=== PATIENT | male | born 1945 | race Caucasian/White ===

== ENCOUNTER 2017-08-02 09:55 | Emergency (ER) | payer MEDICARE, OTHER ==
[~2017-08-02 09:55] MED LIST: ACE325 PO; ATOR10TA24 PO; ATOR40TA24 PO; ATOR40TA69 PO; DIOVAN TP; DIP25 PO; DIPH-740 PO; ESOM20CA31 PO; EZET1TAB63 PO; FAMO20VI; HYDR-3072 PO; HYDR-4225 PO; HYDRO25 PO; LEVO750T27 PO; LORA-1456 PO; MAX75 PO; METF-410 PO; MON4; PANT40TA65 PO; PRE10 PO; PRE20 PO; PRE5; PRED-1 PO; PRED1TAB17 PO; PRED20TA6 PO; STATIN; VALS1TAB10 PO; VALS1TAB79 PO; VALS40TA6 PO; [UNRECOGNIZED DRUG - CODE]; [UNRECOGNIZED DRUG - REMARK] PO
--- NOTE | 2017-08-02 10:09 | ER Report ---
History and Physical Time Seen By MD: 10:08 Hx. of Stated Complaint: RECENT LOSS OF ; DAUGHTER STATES THAT HE HAS HAD SOME ANXIETY AND IS ON NEW MEDICATION HPI/ROS CHIEF COMPLAINT: Anxiety HISTORY OF PRESENT ILLNESS: Patient is a 71-year-old male who presents to the emergency department for evaluation of "low oxygen saturation". Patient has a past medical history for hypertension, situational anxiety, hypercholesterol and type II diabetes. The symptoms that brought the patient to the emergency department today is that he was coming out of the bathroom he felt flushing to his face along with tingling to the face specifically around the lips and some tingling to the left fingers. The symptoms lasted under 1 minute and resolved spontaneously. Patient had no loss of consciousness. Patient denies any significant chest pain or pressure. Denies abdominal pain nausea vomiting or diarrhea. Patient admits that he recently lost his and this is causing some undue anxiety and stress. Patient was recently switched to Paxil which she started approximately one week ago. He had been taking Ativan but his primary care provider is trying to switch him off of that. Patient has no suicidal ideation or thoughts of suicide but doesn't do to depression and anxiety. REVIEW OF SYSTEMS: Constitutional: No fever, no chills. Eyes: No discharge. ENT: No sore throat. Cardiovascular: No chest pain, no palpitations. Respiratory: No cough, no shortness of breath. Gastrointestinal: No abdominal pain, no vomiting. Genitourinary: No hematuria. Musculoskeletal: No back pain. Skin: No rashes. Neurological: No headache. Psychiatric: Depression, anxietyand suicidal ideation. Allergies: Coded Allergies: aspirin (Verified Allergy, Severe, ANAPHYLAXIS, 03/23/16) penicillin (Unverified Allergy, Unknown, ANAPHYLAXIS, 03/23/16) Uncoded Allergies: UNKNOWN FOODS (Allergy, Unknown, 10/16/14) Home Meds Active Scripts Hydroxyzine Hcl (HYDROXYZINE HCL) 25 Mg Tablet, 1-2 TAB PO Q6H Y for hives and itching, #60 2 Refills Prov:JERICA CARDOZA DO 03/23/16 Lorazepam (ATIVAN) 1 Mg Tablet, 1 MG PO Q4-6H for Anxiety, #10 TAB Prov:RUDOLPH HANSEN MD 12/31/15 Reported Medications [place]-3S/Dha/Epa/Fish Oil (Fish Oil 1,200 mg Softgel) 720-1,200MG Capsule.dr 08/02/17 Famotidine (PEPCID AC) 10 Mg Tablet, 20 MG PO QDAY, #5 TAB 08/02/17 Montelukast Sodium (SINGULAIR) 10 Mg Tablet, 1 TAB PO QDAY, TAB 08/02/17 Fluoxetine Hcl (FLUOXETINE HCL) 20 Mg Capsule, 20 MG PO QDAY, CAPSULE 08/02/17 Metformin Hcl (METFORMIN HCL) 1,000 Mg Tablet, 1 TAB PO BID, TAB 08/02/17 Gabapentin (GABAPENTIN) 300 Mg Capsule, 600 MG PO TID, CAPSULE 08/02/17 Triamterene/Hctz (TRIAMTERENE-HCTZ 75-50 MG TAB) 1 Each Tab, 1 EACH PO DAILY, TAB 07/06/15 Atorvastatin Calcium (ATORVASTATIN CALCIUM) 40 Mg Tablet, 1 TAB PO QDAY, TAB 01/10/15 Pantoprazole Sodium (PANTOPRAZOLE SODIUM) 40 Mg Tablet.dr, 40 MG PO QDAY, TAB.SR 05/21/13 Diphenhydramine Hcl (Benadryl) 25 Mg Cap, 25 MG PO QAM 11/29/11 Discontinued Reported Medications Metformin Hcl (METFORMIN HCL) 500 Mg Tablet, 2 TAB PO BID TAKE ONE TABLET BY MOUTH ONCE A DAY WITH FOOD 05/21/13 Discontinued Scripts Prednisone (PREDNISONE) 20 Mg Tablet, 20 MG PO QDAY for allergic reaction, #60 3 tablets by mouth daily 3 days then 2 by mouth daily 3 days, then one by mouth daily 3 days, repeat as needed Prov:JERICA CARDOZA DO 03/23/16 Prednisone 10 Mg Tab (PREDNISONE 10 MG TAB) 10 Mg Tablet, 10 MG PO QDAY Y for reduce allergic reaction, #12 2 tabs daily for 4 days 1 tab daily for 4 days Prov:JERICA CARDOZA DO 03/21/16 Past Medical/Surgical History Past medical history for hypertension, history of gastroesophageal reflux disease history of type II diabetes Hx Smoking: Yes (3/DAY "ALL HIS LIFE") Smoking Status: Current: Every Day Smoker Exposure to Second Hand Smoke?: No Hx Substance Use Disorder: No Hx Alcohol Use: Yes (1-2 BEER OR WINE PER DAY) Constitutional Vital Sign - Last 24 Hours 08/02/17 10:00 Temp 98.7 Pulse 68 Resp 19 B/P (MAP) 132/77 Pulse Ox 93 O2 Delivery Room Air Physical Exam General/Constitutional: Patient is awake, alert, nontoxic and in no acute respiratory distress. Elevated BMI Head: Normocephalic and atraumatic. Eyes: Conjunctival clear, Pupils are equal and reactive to light. Extraocular muscles are intact and symmetrical. Sclera are clear and anicteric. Nares: No rhinorrhea or bleeding. Turbinates are pink and moist. Oropharyngeal: Mucous membranes are moist. There is no pharyngeal erythema or exudate Neck: Supple, no adenopathy. Cardiovascular: Heart is regular rate and rhythm without audible murmurs, rubs or gallops. Pulmonary: Lungs are clear to auscultation bilaterally. There are no wheezes, rales, or rhonchi. Chest rise is symmetrical Abdomen: Soft, nontender, no guarding or peritoneal signs. 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 Medical Decision Making EKG/Imaging EKG Interpretation EKG shows sinus bradycardia with ventricular rate of 59 bpm. There is poor baseline but no appreciable ST segment or T-wave abnormalities noted. Monitor Interpretation: Normal Sinus Rhythm ED Course/Re-evaluation ED Course 08/02/2017 10:58:07 am Patient suspect with hyperventilation causing symptoms of numbness to the face and tingling, this resolved spontaneously Re-evaluation 08/02/2017 11:30:51 am patient seen by crisis provided resources as an outpatient dealing with anxiety and depression. Decision to Disposition Date: Aug 02, 2017 Decision to Disposition Time: 11:31 Depart Departure Latest Vital Signs Vital Signs Date Time Temp Pulse Resp B/P (MAP) Pulse Ox O2 Delivery O2 Flow Rate FiO2 08/02/17 10:00 98.7 68 19 132/77 93 Room Air Impression: Primary Impression: Situational anxiety Condition: Improved Disposition: HOME OR SELF-CARE New Scripts Lorazepam (ATIVAN) 0.5 Mg Tablet 0.5 MG PO Q8H for Anxiety, #20 TAB 0 Refills Prov: DON PORTER MD 08/02/17 Patient Instructions: Anxiety (ED) DON PORTER MD Aug 02, 2017 10:09
[2017-08-02] MEDS ORDERED: FLUO-177 PO (10:11)
[2017-08-02] MEDS ORDERED: OMEG-177 (10:11)
[2017-08-02] MEDS ORDERED: METF-420 PO (10:11)
[2017-08-02] MEDS ORDERED: FAMO-129 PO (10:11)
[2017-08-02] MEDS ORDERED: GABA-549 PO (10:11)
[2017-08-02] MEDS ORDERED: MONT10TA PO (10:11)
[2017-08-02 11:00] VITALS: BP 98/62
--- NOTE | 2017-08-02 11:04 | EKG ---
FACILITY: [facility] PATIENT NAME: VICTORIA TINOCO : [id number] MR: [id number] V: [id number] EXAM DATE: ORDERING PHYSICIAN: DON PORTER TECHNOLOGIST: JANINA Calloway Reason : DIZZINESS Blood Pressure : / mmHG Vent. Rate : 059 BPM Atrial Rate : 059 BPM P-R Int : 174 ms QRS Dur : 094 ms QT Int : 428 ms P-R-T Axes : 058 063 067 degrees QTc Int : 423 ms Sinus bradycardia Otherwise normal ECG When compared with ECG of 16-OCT-2014 15:19, Vent. rate has decreased BY 32 BPM QT has shortened Confirmed by EDWIN SAMUEL ([id number]) on 08/02/2017 11:09:07 AM Referred By: CHARLOTTE Confirmed By:EDWIN SAMUEL
[2017-08-02] MEDS ORDERED: LORA-1455 PO (11:32)
[2017-08-06] MEDS ORDERED: DIPH-618 PO (10:35)
== END 2017-08-02 11:43 | disposition home or self-care (01) ==
LOC: ER 09:55
DX: F41.1 Generalized anxiety disorder (principal)
CPT/HCPCS: 93005; 99282

== ENCOUNTER 2017-08-18 20:15 | Emergency (ER) | payer MEDICARE, OTHER ==
[~2017-08-18 20:15] MED LIST changes: +DIPH-618 PO; +FAMO-129 PO; +FLUO-177 PO; +GABA-549 PO; +LORA-1455 PO; +METF-420 PO; +MONT10TA PO; +OMEG-177
--- NOTE | 2017-08-18 20:26 | ER Report ---
History and Physical Time Seen By MD: 20:17 HPI/ROS CHIEF COMPLAINT: trouble swallowing HISTORY OF PRESENT ILLNESS: This is a 72 year old male. He is having trouble swallowing for several months now. He feels like there is something in lower throat and upper chest making this difficult. It makes him panic a little. He suffers from anxiety already and this seems to make it worse. He saw a doctor at the [facility] who did a nasopharyngeal scope and did not see anything in the upper airway and recommended upper endoscopy. He has an order from his doctor for a chest x-ray, but feels like this is worsening. He has no trouble with swallowing liquids. He does have some trouble with foods. No shortness of breath. He does cough and uses tobacco. No chest pain. No abdominal pain. Normal bowels. No real pain associated with the trouble swallowing. Allergies: Coded Allergies: aspirin (Verified Allergy, Severe, ANAPHYLAXIS, 08/18/17) penicillin (Unverified Allergy, Unknown, ANAPHYLAXIS, 08/18/17) Uncoded Allergies: UNKNOWN FOODS (Allergy, Unknown, 10/16/14) Home Meds Active Scripts Lorazepam (ATIVAN) 0.5 Mg Tablet, 0.5 MG PO Q8H for Anxiety, #20 TAB 0 Refills Prov:DON PORTER MD 08/02/17 Hydroxyzine Hcl (HYDROXYZINE HCL) 25 Mg Tablet, 1-2 TAB PO Q6H Y for hives and itching, #60 2 Refills Prov:JERICA CARDOZA DO 03/23/16 Reported Medications Cetirizine Hcl (ZYRTEC) 10 Mg Capsule, 10 MG PO QDAY, CAPSULE 08/18/17 Fluoxetine Hcl (FLUOXETINE HCL) 20 Mg Capsule, 40 MG PO QDAY, CAPSULE 08/18/17 [place]-3S/Dha/Epa/Fish Oil (Fish Oil 1,200 mg Softgel) 720-1,200MG Capsule. 08/02/17 Famotidine (PEPCID AC) 10 Mg Tablet, 20 MG PO QDAY, #5 TAB 08/02/17 Montelukast Sodium (SINGULAIR) 10 Mg Tablet, 1 TAB PO QDAY, TAB 08/02/17 Metformin Hcl (METFORMIN HCL) 1,000 Mg Tablet, 1 TAB PO BID, TAB 08/02/17 Gabapentin (GABAPENTIN) 300 Mg Capsule, 600 MG PO QHS, CAPSULE 08/02/17 Triamterene/Hctz (TRIAMTERENE-HCTZ 75-50 MG TAB) 1 Each Tab, 1 TAB PO DAILY for 30 Days, TAB 07/06/15 Atorvastatin Calcium (ATORVASTATIN CALCIUM) 40 Mg Tablet, 1 TAB PO QDAY, TAB 01/10/15 Pantoprazole Sodium (PANTOPRAZOLE SODIUM) 40 Mg Tablet.dr, 1 TAB PO QDAY for 30 Days, TAB.SR 05/21/13 Discontinued Reported Medications Diphenhydramine Hcl (DIPHENHYDRAMINE HCL) 25 Mg Tablet, PO DIRECTED, TAB 08/06/17 Fluoxetine Hcl (FLUOXETINE HCL) 20 Mg Capsule, 20 MG PO QDAY, CAPSULE 08/02/17 Reviewed Nurses Notes: Yes Hx Smoking: Yes (3/DAY "ALL HIS LIFE") Smoking Status: Current: Every Day Smoker Exposure to Second Hand Smoke?: No Hx Substance Use Disorder: No Hx Alcohol Use: Yes (1-2 BEER OR WINE PER DAY) Constitutional Vital Sign - Last 24 Hours 08/18/17 08/18/17 08/18/17 08/18/17 20:22 20:22 20:30 20:45 Temp 98.2 Pulse 76 69 72 Resp 16 B/P (MAP) 156/81 (106) 156/81 134/76 (95) Pulse Ox 90 90 O2 Delivery Room Air 08/18/17 08/18/17 08/18/17 08/18/17 21:00 21:15 21:30 21:45 Pulse 63 68 62 61 B/P (MAP) 134/66 (88) 138/66 (90) Pulse Ox 90 88 89 87 08/18/17 08/18/17 08/18/17 08/18/17 22:00 23:00 23:15 23:30 Pulse 70 71 62 B/P (MAP) 125/79 (94) 127/77 (94) Pulse Ox 91 95 87 90 08/18/17 08/19/17 08/19/17 23:45 00:00 00:14 Pulse 56 66 82 Resp 16 B/P (MAP) 146/76 (99) 149/88 (108) Pulse Ox 94 93 95 O2 Delivery Room Air Physical Exam General Appearance: The patient is alert. No acute distress, but very anxious. Eyes: Pupils are equal, round. No pallor, injection or icterus. ENT: Mucous membranes are moist. Normal oral mucosa. Posterior oropharynx is normal. Neck: Supple and non tender. No lymphadenopathy. No masses noted. Respiratory: Lungs are clear to auscultation. Cardiovascular: Regular rate and rhythm. No murmurs, gallops or rubs. Gastrointestinal: Abdomen is soft and non tender. Nondistended. Neurological: Alert and oriented x3. Skin: Warm and dry. DIFFERENTIAL DIAGNOSIS: After history and physical exam, differential diagnosis was considered for dysphagia combined with anxiety that is making this difficult for him. Medical Decision Making Data Points Result Diagram: 08/18/17204408/18/172044 Laboratory Hematology Test 08/18/17 20:45 Red Blood Count 5.12 M/uL (4.00-5.60) Mean Corpuscular Volume 85.6 fL (80.0-96.0) Mean Corpuscular Hemoglobin 29.6 pg (26.0-33.0) Mean Corpuscular Hemoglobin Concent 34.6 g/dL (32.0-36.0) Red Cell Distribution Width 13.0 % (11.5-14.5) Mean Platelet Volume 7.3 fL (7.2-11.1) Neutrophils (%) (Auto) 60.9 % (39.4-72.5) Lymphocytes (%) (Auto) 28.6 % (17.6-49.6) Monocytes (%) (Auto) 8.3 % (4.1-12.4) Eosinophils (%) (Auto) 1.0 % (0.4-6.7) Basophils (%) (Auto) 1.2 % (0.3-1.4) Nucleated RBC Relative Count (auto) 0.0 /100WBC Neutrophils # (Auto) 3.8 K/uL (2.0-7.4) Lymphocytes # (Auto) 1.8 K/uL (1.3-3.6) Monocytes # (Auto) 0.5 K/uL (0.3-1.0) Eosinophils # (Auto) 0.1 K/uL (0.0-0.5) Basophils # (Auto) 0.1 K/uL (0.0-0.1) Nucleated RBC Absolute Count (auto) 0.00 K/uL Sodium Level 130 mmol/L (137-145) Potassium Level 3.5 mmol/L (3.5-5.0) Chloride Level 91 mmol/L (98-107) Carbon Dioxide Level 26 mmol/L (22-30) Blood Urea Nitrogen 18 mg/dl (9-21) Creatinine 1.30 mg/dl (0.66-1.25) Glomerular Filtration Rate Calc 54.3 Random Glucose 103 mg/dl (75-110) Calcium Level 9.8 mg/dl (8.4-10.2) Total Bilirubin 0.7 mg/dl (0.2-1.3) Aspartate Amino Transf (AST/SGOT) 26 U/L (0-35) Alanine Aminotransferase (ALT/SGPT) 54 U/L (0-56) Alkaline Phosphatase 97 U/L (0-126) Total Protein 7.5 gm/dl (6.3-8.2) Albumin 4.2 g/dl (3.5-5.0) Chemistry Test 08/18/17 20:45 White Blood Count 6.3 k/uL (4.5-11.0) Red Blood Count 5.12 M/uL (4.00-5.60) Hemoglobin 15.2 g/dL (14.0-18.0) Hematocrit 43.8 % (42.0-52.0) Mean Corpuscular Volume 85.6 fL (80.0-96.0) Mean Corpuscular Hemoglobin 29.6 pg (26.0-33.0) Mean Corpuscular Hemoglobin Concent 34.6 g/dL (32.0-36.0) Red Cell Distribution Width 13.0 % (11.5-14.5) Platelet Count 217 K/uL (150-450) Mean Platelet Volume 7.3 fL (7.2-11.1) Neutrophils (%) (Auto) 60.9 % (39.4-72.5) Lymphocytes (%) (Auto) 28.6 % (17.6-49.6) Monocytes (%) (Auto) 8.3 % (4.1-12.4) Eosinophils (%) (Auto) 1.0 % (0.4-6.7) Basophils (%) (Auto) 1.2 % (0.3-1.4) Nucleated RBC Relative Count (auto) 0.0 /100WBC Neutrophils # (Auto) 3.8 K/uL (2.0-7.4) Lymphocytes # (Auto) 1.8 K/uL (1.3-3.6) Monocytes # (Auto) 0.5 K/uL (0.3-1.0) Eosinophils # (Auto) 0.1 K/uL (0.0-0.5) Basophils # (Auto) 0.1 K/uL (0.0-0.1) Nucleated RBC Absolute Count (auto) 0.00 K/uL Glomerular Filtration Rate Calc 54.3 Calcium Level 9.8 mg/dl (8.4-10.2) Total Bilirubin 0.7 mg/dl (0.2-1.3) Aspartate Amino Transf (AST/SGOT) 26 U/L (0-35) Alanine Aminotransferase (ALT/SGPT) 54 U/L (0-56) Alkaline Phosphatase 97 U/L (0-126) Total Protein 7.5 gm/dl (6.3-8.2) Albumin 4.2 g/dl (3.5-5.0) EKG/Imaging Imaging 2 VIEWS CHEST INDICATION: Trouble swallowing COMPARISON: None available FINDINGS: Heart size within normal limits. There is no focal infiltrate or lobar consolidation. Mild left basilar atelectasis. There is no pneumothorax or pleural effusion. IMPRESSION: 1. No acute cardiopulmonary process. Report Dictated By: Alexis Gallo MD at 08/18/2017 11:46 PM CHEST W CONTRAST HISTORY: tightness in throat, trouble swallowing TECHNIQUE: CT chest with intravenous contrast. One of the following dose optimization techniques was utilized in the performance of this exam: Automated exposure control; adjustment of the mA and/ or kV according to the patient's size; or use of an iterative reconstruction technique. Specific details can be referenced in the facility's radiology CT exam operational policy. CONTRAST: 75 mL Isovue-370. COMPARISON: None. FINDINGS: Heart/vessels: Minimal calcifications within the coronary arteries. Otherwise negative. Mediastinum: 4 mm hypodensity within the right thyroid lobe. Otherwise negative. Lymph nodes: Negative. Lungs/pleura: Calcified granuloma within the right lung base. Mild left basilar atelectasis. Otherwise negative. Visualized upper abdomen: Negative. Bones/soft tissues: Extensive ossification of the spinal ligaments, suggestive of ankylosing spondylitis. No acute osseous abnormality identified. IMPRESSION: 1. No acute findings. 2. Incidental/chronic findings, as above. Report Dictated By: Alexis Gallo MD at 08/18/2017 11:19 PM EXAMINATION: CT neck with IV contrast HISTORY: Tightness in throat. Trouble swallowing. COMPARISON: None. TECHNIQUE: Spiral scan was obtained from the hard palate through the upper chest during injection of nonionic iodinated intravenous contrast. Sagittal and coronal reformatted images are also submitted. CONTRAST: 75 mL Isovue-370. One of the following dose optimization techniques was utilized in the performance of this exam: Automated exposure control; adjustment of the mA and/ or kV according to the patient's size; or use of an iterative reconstruction technique. Specific details can be referenced in the facility's radiology CT exam operational policy. FINDINGS: Masses/lesions: None. There are 2 left and a single right small calcifications within the tonsils, compatible with tonsilloliths. No significant swelling or phlegmonous changes identified within the tonsils. Airway: Widely patent. Vessels: Calcified plaque noted within the visualized cavernous carotid arteries. Otherwise negative. Musculoskeletal/body wall: No acute findings. There is ossification of the anterior longitudinal ligament. Lymph nodes: Negative. Visualized orbits/brain/paranasal sinuses: Negative. Upper chest: Negative. IMPRESSION: 1. No acute findings. No explanation for the patient's clinical symptoms. 2. Incidental note of bilateral tonsilloliths. Report Dictated By: Alexis Gallo MD at 08/18/2017 11:22 PM ED Course/Re-evaluation Clinical Indication for ER IV: IV Access ED Course Patient had imaging as noted above. No acute problems noted. Discussed the small area of right thyroid that needs to be followed up with primary care. Recommended follow-up with someone who can do an upper endoscopy. He will follow -up with Dr. Contreras. He is very anxious and was worried to go home. He will use a 0.5mg Lorazepam to help with anxiety. He was able to eat ice and drink liquids. Advised to stick with clear liquid diet until he sees Dr. Contreras. Decision to Disposition Date: Aug 19, 2017 Decision to Disposition Time: 00:07 Depart Departure Latest Vital Signs Vital Signs Date Time Temp Pulse Resp B/P (MAP) Pulse Ox O2 Delivery O2 Flow Rate FiO2 08/19/17 00:14 82 16 149/88 (108) 95 Room Air 08/18/17 20:22 98.2 Impression: Primary Impression: Difficulty swallowing Condition: Improved Disposition: HOME OR SELF-CARE Referrals: JHOAN IGLESIAS (PCP) KATHRINE CONTRERAS MD Patient Instructions: Dysphagia (ED) Additional Instructions: Take your ativan tonight to help with anxiety. Call Dr. Contreras in the morning and schedule an evaluation with him for your trouble swallowing. Stick with clear liquids until you see Dr. Contreras. Problem Qualifiers Primary Impression: Difficulty swallowing Dysphagia type: pharyngoesophageal phase Qualified Codes: R13.14 - Dysphagia , pharyngoesophageal phase RADHA MILLS MD Aug 18, 2017 20:26
[2017-08-18] MEDS ORDERED: FLUO-177 PO (20:31)
[2017-08-18] MEDS ORDERED: CETI10CA8 PO (20:31)
[2017-08-18 20:56] LABS: PLATELET COUNT, AUTOMATED 217 K/uL (150-450)
[2017-08-18] MEDS ORDERED: IOPAMIDOL 76% 75 ML INFUS BTL 75 ML ONE (21:46)
--- NOTE | 2017-08-18 23:26 | RADIOLOGY IMAGING REPORT ---
FACILITY: [facility] PATIENT NAME: Ousmane Norton : 1945 MR: [id number] V: [id number] EXAM DATE: ORDERING PHYSICIAN: RADHA MILLS TECHNOLOGIST: [place] [facility] [place]us[place]e [place] : 1945 Visit/Account:[id number] Date of Sevice: 08/18/2017 CHEST W CONTRAST HISTORY: tightness in throat, trouble swallowing TECHNIQUE: CT chest with intravenous contrast. One of the following dose optimization techniques was utilized in the performance of this exam: Autom ated exposure control; adjustment of the mA and/or kV according to the patient's size; or use of an i terative reconstruction technique. Specific details can be referenced in the facility's radiology C T exam operational policy. CONTRAST: 75 mL Isovue-370. COMPARISON: None. FINDINGS: Heart/vessels: Minimal calcifications within the coronary arteries. Otherwise negative. Mediastinum: 4 mm hypodensity within the right thyroid lobe. Otherwise negative. Lymph nodes: Negative. Lungs/pleura: Calcified granuloma within the right lung base. Mild left basilar atelectasis. Otherwi se negative. Visualized upper abdomen: Negative. Bones/soft tissues: Extensive ossification of the spinal ligaments, suggestive of ankylosing spondyl itis. No acute osseous abnormality identified. IMPRESSION: 1. No acute findings. 2. Incidental/chronic findings, as above. Report Dictated By: Alexis Gallo MD at 08/18/2017 11:19 PM Report E-Signed By: Alexis Gallo MD at 08/18/2017 11:22 PM WSN:[id number]
--- NOTE | 2017-08-18 23:29 | RADIOLOGY IMAGING REPORT ---
FACILITY: [facility] PATIENT NAME: Ousmane Norton : 1945 MR: [id number] V: [id number] EXAM DATE: ORDERING PHYSICIAN: RADHA MILLS TECHNOLOGIST: Location: [facility] Patient: Ousmane Norton : 1945 Visit/Account:[id number] Date of Sevice: 08/18/2017 EXAMINATION: CT neck with IV contrast HISTORY: Tightness in throat. Trouble swallowing. COMPARISON: None. TECHNIQUE: Spiral scan was obtained from the hard palate through the upper chest during injection o f nonionic iodinated intravenous contrast. Sagittal and coronal reformatted images are also submitte d. CONTRAST: 75 mL Isovue-370. One of the following dose optimization techniques was utilized in the performance of this exam: Autom ated exposure control; adjustment of the mA and/or kV according to the patient's size; or use of an i terative reconstruction technique. Specific details can be referenced in the facility's radiology C T exam operational policy. FINDINGS: Masses/lesions: None. There are 2 left and a single right small calcifications within the tonsils, c ompatible with tonsilloliths. No significant swelling or phlegmonous changes identified within the to nsils. Airway: Widely patent. Vessels: Calcified plaque noted within the visualized cavernous carotid arteries. Otherwise negative . Musculoskeletal/body wall: No acute findings. There is ossification of the anterior longitudinal liga ment. Lymph nodes: Negative. Visualized orbits/brain/paranasal sinuses: Negative. Upper chest: Negative. IMPRESSION: 1. No acute findings. No explanation for the patient's clinical symptoms. 2. Incidental note of bilateral tonsilloliths. Report Dictated By: Alexis Gallo MD at 08/18/2017 11:22 PM Report E-Signed By: Alexis Gallo MD at 08/18/2017 11:27 PM WSN:[id number]
--- NOTE | 2017-08-18 23:50 | RADIOLOGY IMAGING REPORT ---
[place] [facility] [place]: Ousmane Norton : 1945 MR: [id number] V: [id number] EXAM DATE: ORDERING PHYSICIAN: RADHA MILLS TECHNOLOGIST: Location: [facility] Patient: Ousmane Norton : 1945 Visit/Account:[id number] Date of Sevice: 08/18/2017 2 VIEWS CHEST INDICATION: Trouble swallowing COMPARISON: None available FINDINGS: Heart size within normal limits. There is no focal infiltrate or lobar consolidation. Mild left basilar atelectasis. There is no pneumothorax or pleural effusion. IMPRESSION: 1. No acute cardiopulmonary process. Report Dictated By: Alexis Gallo MD at 08/18/2017 11:46 PM Report E-Signed By: Alexis Gallo MD at 08/18/2017 11:47 PM WSN:[id number]
[2017-08-19] MEDS ORDERED: LORazepam 0.5 MG TAB PO ONE (00:05)
[2017-08-19 00:14] VITALS: BP 149/88
[2017-08-26] MEDS ORDERED: LOR1 PO (13:24)
== END 2017-08-19 00:16 | disposition home or self-care (01) ==
LOC: ER 20:22
DX: R13.14 Dysphagia, pharyngoesophageal phase (principal); F17.210 Nicotine dependence, cigarettes, uncomplicated; E07.89 Other specified disorders of thyroid
CPT/HCPCS: 70491; 71046; 71260; 85025; 99284; A9270; Q9967; 82040; 82247; 82310; 82374; 82435; 82565; 82947; 84075; 84132; 84155; 84295; 84450; 84460; 84520

== ENCOUNTER → 2017-08-23 | Outpatient (CLI) | payer MEDICARE, OTHER ==
[~2017-08-23] MED LIST changes: +CETI10CA8 PO; +LOR1 PO
--- NOTE | 2017-08-23 15:11 | RADIOLOGY IMAGING REPORT ---
FACILITY: [facility] - [place] PATIENT NAME: Ousmane Norton : 1945 MR: [id number] V: [id number] EXAM DATE: ORDERING PHYSICIAN: JHOAN IGLESIAS TECHNOLOGIST: Location: [facility] Patient: Ousmane Norton : 1945 Visit/Account:[id number] Date of Sevice: 08/23/2017 THYROID HISTORY: R thyroid nodule seen on CT COMPARISON: CT chest August 18, 2017 FINDINGS: SIZE: Normal. Right lobe: 4.9 x 1.6 x 1.5 cm Left lobe: 3.9 x 1.6 x 1.5 cm Isthmus: 3 mm PARENCHYMA: Homogeneous. NODULES: Right lobe: * There is a 6 mm well-circumscribed hypoechoic nodule in the mid to lower pole the right lobe. Left lobe: * None discrete. Isthmus: * None discrete. VASCULARITY: Within normal limits. ADDITIONAL FINDINGS: None. IMPRESSION: There is a 6 mm posterior right apical nodule in the mid to lower pole the right lobe. REFERENCE: 2015 [place] [employer] Management Guidelines for Adult Patients with Thyroid Nodules and D ifferentiated Thyroid Cancer: The [place] [employer] Guidelines Task Force on Thyroid Nodul es and Differentiated Thyroid Cancer. SONOGRAPHIC PATTERNS: * Benign: Purely cystic nodules (no solid component); estimated risk of malignancy <1 percent; no bi opsy recommended. * Very Low Suspicion: Spongiform or partially cystic nodules without any of the sonographic features described in low, intermediate, or high suspicion patterns; estimated risk of malignancy <3 percent; consider FNA at > 2 cm (Observation without FNA is also a reasonable option). * Low Suspicion: Isoechoic or hyperechoic solid nodule, or partially cystic nodule with eccentric so lid areas, without microcalcification, irregular margin or ETE (extra-thyroidal extension), or taller than wide shape; estimated risk of malignancy 5-10 percent; recommend FNA at >1.5 cm. * Intermediate Suspicion: Hypoechoic solid nodule with smooth margins without microcalcifications, E TE (extra-thyroidal extension), or taller than wide shape; estimated risk of malignancy 10-20 percent ; recommend FNA at > 1 cm. * High Suspicion: Solid hypoechoic nodule or solid hypoechoic component of a partially cystic nodule with one or more of the following features: irregular margins (infiltrative, microlobulated), microc alcifications, taller than wide shape, rim calcifications with small extrusive soft tissue component, evidence of ETE (extra-thyroidal extension); estimated risk of malignancy >70-90 percent; recommend FNA at > 1 cm. NOTES: * Although a sonographically suspicious subcentimeter thyroid nodule without evidence of extrathyroi dhaval extension or sonographically suspicious lymph nodes may be observed with close sonographic follow -up rather than pursuing immediate FNA, patient age and preference may modify decision-making. A > 50% interval increase in nodule volume and/or development of new suspicious sonographic features are felt to be a valid reasons for potential re-aspiration of a nodule previously shown to have benig n FNA cytology. Report Dictated By: Michaelle Andre MD at 08/23/2017 2:59 PM Report E-Signed By: Michaelle Andre MD at 08/23/2017 3:06 PM WSN:[email or web address]
== END ==
LOC: US 01:10
PROVIDERS: ATTEND Nurse Practitioner Family
DX: E04.9 Nontoxic goiter, unspecified (principal)
CPT/HCPCS: 76536

== ENCOUNTER 2017-08-29 01:25 | Day surgery (SDC) | payer MEDICARE, OTHER ==
[~2017-08-29] VITALS: Ht 175.3 cm; Wt 103.9 kg
[2017-08-29 07:36] VITALS: BP 141/88
[2017-08-29] MEDS ORDERED: NORMOSOL R SOLN(*) 1000 ML BAG 1,000 ML IV PRN (07:55)
[2017-08-29] MEDS ORDERED: LIDOCAINE/SOD BICARB 8.4% SYR ID ONE (07:55)
--- NOTE | 2017-08-29 08:35 | Post Operative Progress Note ---
Post Operative Progress Note Date: Aug 29, 2017 Time: 08:52 Surgeon: ronit Anesthesia: dr temple Pre-Op Diagnosis: dysphagia Post-Op Diagnosis: proximal gastritis Procedure(s): egd KATHRINE BLUE MD Aug 29, 2017 08:35
--- NOTE | 2017-08-29 08:36 | Short(Outpt) Discharge Summary ---
Discharge Summary Reason for Hosp/Final Diag: (1) Difficulty swallowing Status: Acute Hospital Course & Plan: proximal gastritis no stenosis or narrowing of the ge junction Departure Discharge to: Home Discharge Instructions Home Meds Active Scripts Hydroxyzine Hcl (HYDROXYZINE HCL) 25 Mg Tablet, 1-2 TAB PO Q6H Y for hives and itching, #60 2 Refills Prov:SONYJERICA Codie ALVARENGA 03/23/16 Reported Medications Lorazepam (LORAZEPAM) 1 Mg Tab, 1 MG PO Q8H for Anxiety, TAB 08/26/17 Cetirizine Hcl (ZYRTEC) 10 Mg Capsule, 10 MG PO QDAY, CAPSULE 08/18/17 Fluoxetine Hcl (FLUOXETINE HCL) 20 Mg Capsule, 40 MG PO QDAY, CAPSULE 08/18/17 [place]-3S/Dha/Epa/Fish Oil (Fish Oil 1,200 mg Softgel) 720-1,200MG Capsule. 08/02/17 Famotidine (PEPCID AC) 10 Mg Tablet, 20 MG PO QDAY, #5 TAB 08/02/17 Metformin Hcl (METFORMIN HCL) 1,000 Mg Tablet, 1 TAB PO BID, TAB 08/02/17 Gabapentin (GABAPENTIN) 300 Mg Capsule, 600 MG PO QHS, CAPSULE 08/02/17 Triamterene/Hctz (TRIAMTERENE-HCTZ 75-50 MG TAB) 1 Each Tab, 1 TAB PO DAILY for 30 Days, TAB 07/06/15 Atorvastatin Calcium (ATORVASTATIN CALCIUM) 40 Mg Tablet, 1 TAB PO QDAY, TAB 01/10/15 Discontinued Reported Medications Montelukast Sodium (SINGULAIR) 10 Mg Tablet, 1 TAB PO QDAY, TAB 08/02/17 Pantoprazole Sodium (PANTOPRAZOLE SODIUM) 40 Mg Tablet.dr, 1 TAB PO QDAY for 30 Days, TAB.SR 05/21/13 Discontinued Scripts Lorazepam (ATIVAN) 0.5 Mg Tablet, 0.5 MG PO Q8H for Anxiety, #20 TAB 0 Refills Prov:DON PORTER MD 08/02/17 Diet: Regular Activity: As Tolerated KATHRINE BLUE MD Aug 29, 2017 08:36
[2017-08-29] MEDS ORDERED: PANT40TA65 PO (08:53)
[2017-08-29 08:54] VITALS: BP 87/50
[2017-08-29 09:00] VITALS: BP 122/78
[2017-08-29 09:33] VITALS: BP 117/76
[2017-08-29 09:44] VITALS: BP 120/64
[2017-08-29 09:46] VITALS: BP 96/61
--- NOTE | 2017-08-29 15:23 | OPERATIVE REPORT 1 ---
EVENT DATE: August 29, 2017 SURGEON: Casey Contreras MD ANESTHESIOLOGIST: Jordin Johnston MD ANESTHESIA: Sedation. PREOPERATIVE DIAGNOSIS Dysphagia. POSTOPERATIVE DIAGNOSES 1. Some proximal gastritis. 2. Otherwise normal exam. PROCEDURE PERFORMED Esophagogastroduodenoscopy. DESCRIPTION OF PROCEDURE The patient was placed in the left lateral decubitus position and given intravenous sedation. The flexible gastroscope was inserted and advanced without difficulty. The proximal esophagus appeared to be normal. It distended nicely. He had normal white, pearly mucosa down to 39 cm where the GE junction was located. This seemed to be widely patent. I did not have any resistance to the scope. I could not identify any esophageal ring. We passed into the stomach which was empty, through the pylorus, and into the second and third portions of the duodenum which were normal. The duodenal bulb was normal. The pylorus was normal. The antrum was normal. The body of the stomach was normal. The scope was retroflexed. He had some redness of the mucosa in the proximal fundus of the stomach. No ulceration was noted. The scope was then slowly withdrawn. Again, the GE junction was visualized. There did not appear to be anything to dilate, so no dilatation was performed. The patient tolerated the procedure well. No apparent complication. [facility]
== END 2017-08-29 09:57 | disposition home or self-care (01) ==
LOC: OR 01:25
PROVIDERS: ATTEND Surgery
DX: K29.70 Gastritis, unspecified, without bleeding (principal); E11.9 Type 2 diabetes mellitus without complications
CPT/HCPCS: 36416; 82948

== ENCOUNTER 2017-10-01 00:07 | Inpatient (IN) | payer MEDICARE, OTHER ==
--- NOTE | 2017-09-26 17:50 | HISTORY AND PHYSICAL ---
DATE OF ADMISSION: October 01, 2017 IDENTIFICATION/CHIEF COMPLAINT Ousmane is a 71-year-old gentleman with the chief complaint of left hip pain. HISTORY OF PRESENT ILLNESS Patient has a long-standing history of hip arthritis, progressively painful and debilitating, refractory to conservative care. Surgery is indicated to relieve symptoms after failure of nonoperative measures. PAST MEDICAL HISTORY * Remote history of pneumonia. * Stiff neck and difficulties with his throat. * Well-controlled hypertension. PAST SURGICAL HISTORY * Vasectomy and reversal. * Hernia repair. ALLERGIES * Possibly include PENICILLIN, but he is not sure. He has no definitive drug allergies. CURRENT MEDICATIONS * Atorvastatin 40 mg p.o. q.day. * Metformin 1000 mg b.i.d. * Pantoprazole 40 mg p. q.day. * Triamterene/HCTZ 75/50 one p.o. q.day. * Gabapentin 600 mg p.o. at bedtime. * Pepcid 20 mg p.o. q.day. * Cetirizine 10 mg p.o. q.day. * Montelukast 10 mg p.o. q.day. * Hydroxyzine 25 mg every other day. * Lorazepam 0.5 mg p.r.n. * Fluoxetine 40 mg p.o. q.day. SOCIAL HISTORY Notable for chewing tobacco, used to chew two cans a day, is down to one can per day. He drinks about two beers per week. Denies drug abuse. FAMILY HISTORY Father with diabetes, mother with lung cancer, sister with breast cancer. REVIEW OF SYSTEMS Notable for borderline diabetes, situational depression and indigestion. PHYSICAL EXAMINATION GENERAL: A well-developed, well-nourished male who appears his stated age. HEENT: Normocephalic, atraumatic. NECK: Supple. LUNGS: Clear. HEART: Regular. ABDOMEN: Soft. ORTHOPEDIC EXAM: The left hip is very stiff at limits of rotation. Hip girdle strength is grossly intact. Skin is intact. Calves are nontender. Neurovascular function is intact. IMAGING Radiographs demonstrate end-stage hip arthritis. ASSESSMENT Left hip end-stage degenerative joint disease, progressively painful and debilitating, refractory to conservative care. PLAN Per patient request, we are going to proceed with left hip replacement. The nature of the procedure, risks, benefits, the anticipated rehab course were reviewed. The risks include, but are not limited to , major medical or anesthetic complications, infection, neurovascular injury, blood transfusion, stiffness, scarring, fracture, tendon rupture or instability, leg length discrepancy, implant loosening, migration or failure, persistent or recurrent pain, need for additional surgery and other unforeseen. He understands and wishes to proceed. A signed permit was placed in the chart. No guarantees are given or implied. CAITLIN
[2017-10-01] VITALS (11 sets, daily range): BP systolic 83–115; BP diastolic 50–73
[~2017-10-01] VITALS: Ht 172.7 cm; Wt 101.6 kg
[~2017-10-01 00:07] MED LIST changes: +FAMO20TA28 PO; +PSYL1PAC23 PO
[2017-10-01] MEDS ORDERED: DEXAMETHASONE SOD PHOS 10MG/ML ONE (08:11)
[2017-10-01] MEDS ORDERED: PROPOFOL EMUL(*) 10MG/ML 20 ML 20 ML ONE (08:11)
[2017-10-01] MEDS ORDERED: LIDOCAINE MPF 1% 5 ML VIAL ONE (08:11)
[2017-10-01] MEDS ORDERED: ONDANSETRON 4 MG/2 ML VIAL ONE (08:11)
[2017-10-01] MEDS ORDERED: fentaNYL CITR 100 MCG/2 ML AMP ONE ×2 (08:12→12:28)
[2017-10-01] MEDS ORDERED: PHENYLEPHRINE 10 MG/1 ML VIAL ONE (08:19)
[2017-10-01] MEDS ORDERED: SUGAMMADEX SOD 500 MG/5 ML SDV ONE ×2 (08:41→11:58)
[2017-10-01] MEDS ORDERED: ROCURONIUM BROM 10 MG/ML 5 ML ONE (09:30)
[2017-10-01] MEDS ORDERED: LIDOCAINE/SOD BICARB 8.4% SYR ID ONE (09:30)
[2017-10-01] MEDS ORDERED: MIDAZOLAM 2 MG/2 ML VIAL IVP PRN (09:30)
[2017-10-01] MEDS ORDERED: CLINDAMYCIN(*) 900 MG/NS 50 ML 50 ML IVPB ONE (09:30)
[2017-10-01] MEDS ORDERED: DEXMEDETOMIDINE HCL 200 MCG/2 ML IV ONE (09:30)
[2017-10-01] MEDS ORDERED: NORMOSOL R SOLN(*) 1000 ML BAG 1,000 ML IV PRN ×2 (09:30→12:35)
[2017-10-01] MEDS ORDERED: HYDROmorphone HCL 2 MG/ML SDV ONE (10:43)
[2017-10-01] MEDS ORDERED: NS 0.9% 20 ML SDV 20 ML ONE (10:43)
[2017-10-01] MEDS ORDERED: LACTATED RINGER 3000 ML BAG IR ONE (10:44)
[2017-10-01] MEDS ORDERED: cloNIDine EPIDUR INJ 100MCG/ML 40 MCG, ROPIVACAINE 0.5% 20 ML VIAL 25 ML, EPINEPHrine H... INJ ONE (11:00)
[2017-10-01] MEDS ORDERED: TRANEXAMIC AC 1000 MG/10ML SDV 1,000 MG in DEXTROSE 5% 50 ML BAG 50 ML IV ONE (11:00)
[2017-10-01] MEDS ORDERED: KETOROLAC 30 MG/ML VIAL ONE (11:39)
[2017-10-01] MEDS ORDERED: ACETAMINOPHEN(*)1000 MG/100 ML 100 ML IVPB ONE (11:42)
[2017-10-01] MEDS ORDERED: BISACODYL 10 MG SUPP PR PRN (12:35)
[2017-10-01] MEDS ORDERED: PROMETHAZINE 25 MG/ML 1 ML AMP IVP PRN (12:35)
[2017-10-01] MEDS ORDERED: BENZOCAINE/MENTHOL 1 EACH LOZG PO PRN (12:35)
[2017-10-01] MEDS ORDERED: FLUSH 10 ML SYR IVP PRN (12:35)
[2017-10-01] MEDS ORDERED: ZOLPIDEM TARTRATE 5 MG TAB PO PRN (12:35)
[2017-10-01] MEDS ORDERED: DIAZEPAM 5 MG TAB PO PRN (12:35)
[2017-10-01] MEDS ORDERED: diphenhydrAMINE 50 MG/ML VIAL IVP PRN (12:35)
[2017-10-01] MEDS ORDERED: MAGNESIUM HYDROXIDE* 30ML UDCP PO PRN (12:35)
[2017-10-01] MEDS ORDERED: diphenhydrAMINE 25 MG CAP PO PRN (12:35)
--- NOTE | 2017-10-01 13:34 | RADIOLOGY IMAGING REPORT ---
FACILITY: [facility] [place] PATIENT NAME: Ousmane Norton : 1945 MR: [id number] V: [id number] EXAM DATE: ORDERING PHYSICIAN: STEVE TOLEDO TECHNOLOGIST: Location: [facility] [place] Patient: Ousmane Norton : 1945 Visit/Account:[id number] Date of Sevice: 10/01/2017 Exam type: PELVIS History: S/P TOTAL HIP ARTHROPLASTY POSTERIOR APPROACH Comparison: March 16, 2015. Findings: There is a left hip arthroplasty that appears in good anatomic alignment on this single AP view. Sof t tissue gas and skin jourdan are seen adjacent to this postoperative hip. Incidentally noted are mi ld degenerative changes the right hip joint IMPRESSION: 1. As above Report Dictated By: Michaelle Andre MD at 10/01/2017 1:29 PM Report E-Signed By: Michaelle Andre MD at 10/01/2017 1:30 PM WSN:[email or web address]
[2017-10-01] MEDS ORDERED: HYDR-4225 PO (14:37)
[2017-10-01] MEDS ORDERED: INSULIN HUM LISPRO 100 UN/ML 3 ML VIAL SUBQ PRN (14:40)
[2017-10-01] MEDS ORDERED: NS(*) 0.9% 1000 ML BAG 1,000 ML IV ONE (14:40)
--- NOTE | 2017-10-01 15:09 | Hospitalist Consultation ---
History of Present Illness Requesting Physician Dr. Underwood Reason for Consult Medication Management Chief Complaint s/p left hip replacement History of Present Illness He was admitted s/p left hip replacement. It is reported the surgery went well and without complication. History Problems: (1) Diabetes mellitus, type 2 Status: Chronic (2) Hypertension Status: Chronic (3) GERD (gastroesophageal reflux disease) Status: Chronic (4) Seasonal allergies Status: Chronic (5) Situational anxiety Status: Acute Home Meds Active Scripts Pantoprazole Sodium (PANTOPRAZOLE SODIUM) 40 Mg Tablet.dr, 40 MG PO QDAY, #30 TAB.SR 3 Refills Prov:KATHRINE BLUE MD 08/29/17 Reported Medications Hydroxyzine Hcl (HYDROXYZINE HCL) 25 Mg Tablet, 25 MG PO QHS 10/01/17 Montelukast Sodium (SINGULAIR) 10 Mg Tablet, 1 TAB PO QDAY, TAB 09/24/17 Famotidine (PEPCID) 20 Mg Tablet, 20 MG PO QDAY, #10 TAB 09/24/17 Psyllium Husk (with Sugar) (Metamucil Packet) 3.4 Gram Powd.pack, 12 GM PO DAILY 09/24/17 Lorazepam (LORAZEPAM) 1 Mg Tab, 1 MG PO DAILY for Anxiety, TAB 08/26/17 Cetirizine Hcl (ZYRTEC) 10 Mg Capsule, 10 MG PO QDAY, CAPSULE 08/18/17 Fluoxetine Hcl (FLUOXETINE HCL) 20 Mg Capsule, 40 MG PO QDAY, CAPSULE 08/18/17 [place]-3S/Dha/Epa/Fish Oil (Fish Oil 1,200 mg Softgel) 720-1,200MG Capsule. 08/02/17 Metformin Hcl (METFORMIN HCL) 1,000 Mg Tablet, 1 TAB PO BID, TAB 08/02/17 Gabapentin (GABAPENTIN) 300 Mg Capsule, 600 MG PO QHS, CAPSULE 08/02/17 Triamterene/Hctz (TRIAMTERENE-HCTZ 75-50 MG TAB) 1 Each Tab, 1 TAB PO DAILY for 30 Days, TAB 07/06/15 Atorvastatin Calcium (ATORVASTATIN CALCIUM) 40 Mg Tablet, 1 TAB PO QDAY, TAB 01/10/15 Discontinued Scripts Hydroxyzine Hcl (HYDROXYZINE HCL) 25 Mg Tablet, 1-2 TAB PO Q6H Y for hives and itching, #60 2 Refills Prov:JERICA CARDOZA DO 03/23/16 Allergies: Coded Allergies: penicillin (Unverified Allergy, Unknown, ANAPHYLAXIS, 08/18/17) Patient History: FH: diabetes mellitus FATHER, , Age:47 FH: lung cancer MOTHER, , Age:62 Hx Smoking: Yes (3/DAY "ALL HIS LIFE" HAS QUIT IN 2017) Smoking Status: Former Smoker Exposure to Second Hand Smoke?: No Caffeine Intake: Coffee Caffeine/Cups Per Day: 6 CUPS/DAY Hx Alcohol Use: Yes (1-2 BEER OR WINE PER DAY) Hx Substance Use Disorder: No Social Drug Use: Never Review of Systems All Systems Reviewed/Normal: Yes, Except as Noted Exam Vital Signs Vital Signs Date Time Temp Pulse Resp B/P (MAP) Pulse Ox O2 Delivery O2 Flow Rate FiO2 10/01/17 14:30 69 18 86/55 (65) 96 Nasal Cannula 3.0 10/01/17 13:45 97.5 General Appearance: Alert, Awake, No Acute Distress, Afebrile Neuro: No Gross deficits Cardiovascular: Regular Rate and Rhythm Respiratory: No Respiratory Distress, Clear to Auscultation GI: Abd Soft and Non-Tender Psych: Alert & Oriented X3, Appropriate Mood & Affect Assessment and Plan Problems: (1) Status post left hip replacement Status: Acute Assessment & Plan: Followed by Dr. Underwood. He will be placed on Aspirin 325mg daily for DVT prophylaxis. He has no history of DVT or PE. (2) Hypertension Status: Chronic Assessment & Plan: He is on chronic treatment with Triamterene and Hydrochlorothiazide. These were restarted with parameters. However, his blood pressure has been in the 80's systolic post-operative. At this time, we will bolus the patient with Normal Saline 500ml, then lower to 150ml/hr for one liter total. (3) Diabetes mellitus, type 2 Status: Chronic Assessment & Plan: He is on chronic treatment with Metformin. We have started an ADA diet, will check glucoses AC/HS and he will be placed on a Sliding scale Insulin # 2. (4) GERD (gastroesophageal reflux disease) Status: Chronic Assessment & Plan: He is on chronic treatment with Protonix. (5) Situational anxiety Status: Acute Assessment & Plan: He is on chronic treatment with Ativan and Fluoxetine. The Ativan has been held secondary to Valium ordered for muscle spasms. (6) Seasonal allergies Status: Chronic Assessment & Plan: He is on chronic treatment with Singulair and Zyrtec. Venous Thromboembolism Antithrombotics Is Pt On Any Antithrombotics?: No Prophylaxis Tx Contraindicated Pharmacological Contraindicati: Surgical Contraindication CECILIA MARTINEZP Oct 01, 2017 15:09
[2017-10-01] MEDS: CLINDAMYCIN(*) 900 MG/NS 50 ML 50 ML IVPB SCH (17:00)
[2017-10-01] MEDS: CELECOXIB 200 MG CAP PO SCH (17:00)
--- NOTE | 2017-10-01 20:47 | OPERATIVE REPORT 1 ---
EVENT DATE: October 01, 2017 SURGEON: Meir Underwood MD ANESTHESIOLOGIST: Jai Hammer MD ANESTHESIA: General plus spinal. FLEXOGRAPHIC PRESS PLATE SETTER: Taurus Ivy PA-C PREOPERATIVE DIAGNOSIS Left hip degenerative joint disease. POSTOPERATIVE DIAGNOSIS Left hip degenerative joint disease. PROCEDURE PERFORMED Left total hip arthroplasty. ESTIMATED BLOOD LOSS 400 mL DRAINS None. SPECIMENS None. COMPLICATIONS None apparent. IMPLANTS USED G-cluster system Trident PSL ZAYAS cluster acetabular shell 56, Trident zero-degree eccentric insert, a Secur-Fit Max 127-degree stem size 12, a 36 mm +10 chrome cobalt C-taper femoral head. INDICATIONS Ousmane is a 72-year-old gentleman with intractable pain related to hip arthritis. Surgery is indicated to relieve symptoms after failure of nonoperative measures. DESCRIPTION OF PROCEDURE Patient was taken to the operating room, placed supine on the operating table. General anesthesia was induced after a spinal block was administered by the anesthesiologist. Antibiotics and TXA were administered IV. Patient was positioned in right lateral decubitus with his pelvis secured on a pegboard in a vertical position. All bony prominences and superficial nerves were well padded. The left hip girdle and lower extremity were prepped and draped free in the usual sterile fashion for hip arthroplasty. A posterolateral incision made, carried down through the skin and subcutaneous tissue down to the deep fascia. Fascia was incised over the tip of the trochanter, extended distally in line with the femur, proximally in line with the ton fibers. Ton fibers were split bluntly. Trochanteric bursa was excised. Interval between the abductor and external rotator was identified. Abductor mechanism was protected with a blunt Hohmann. An L capsulotomy/tenotomy was made with the horizontal limb starting at the rim of the acetabulum just superior to the piriformis, extending to and releasing the piriformis and the capsule and then extending, peeling the capsule and the external rotators posterolaterally off the femur. The femoral head was dislocated. End-stage arthritic change is noted. The capsule and external rotators are tagged for later anatomic reattachment with #2 Vicryl. A 1.5 cm neck cut was made consistent with preoperative templating. An osteotomy was performed with an oscillating saw. Femoral head is extracted and taken to the back table. The femur is translocated anteriorly. Carmen-acetabular retractors are placed with the tips down on bone. Labrum and pulvinar are excised. A 44 mm reamer is used to medialize through the true medial wall of the acetabulum. This is expanded in 2 mm increments up to 56 where nice rim contact is obtained. Trial 56 has nice fit. The 57 reamer is used to lightly open the floor to the acetabulum to minimize fracture risk and to accommodate the raised rim liner. The surfaces are copiously lavaged. The actual shell is then impacted in approximately 40 degrees of abduction and 15 to 20 degrees of anteversion using an extracorporeal guide, transverse acetabular ligament, and internal bony landmarks to guide socket placement. Rock-solid fixation achieved. Placement is felt to be good. Due to the significant medialization, I elected to impact an eccentric liner. This is impacted into position and seats nicely. Attention is turned to femoral preparation. The superior neck is resected with a 39 Health cutter. A Scot awl finds the canal. Tapered reaming is performed up to 12 where good end-osteal contact is obtained. Broaching starts with 9 and works up to 12, taking care to lateralize and follow the [place] version of the calcar which is at about 15 degrees. The 12 broach has nice fit and fill. Trial reduction is performed off this. There are some difficulties achieving ideal stability. The socket orientation is carefully checked and is felt to good. 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 As much as possible, any impinging soft tissue in the anterior capsule on the rim region is resected to prevent any bony impingement. Eventually, the combination of the 127 and the +10 satisfactory stability at the neutrally abducted position with 90 degrees of flexion, he could be internally rotated to about 50 before he starts to sublux and 60 before he fully dislocates. In this situation, that is felt to be satisfactory. This is the longest length and offset combination achievable with this stem combination. This is already a bit proud on the cut in order to avoid compromising stability. I felt this is ideal. The broach was then removed. The actual stem is impacted and seats at the same height. Trial reduction performed again, +10 selected. The Victor taper was lavaged and dried. This was impacted into position. Joint is reduced. The posterior capsule and external rotators were reapproximated anatomically to drill holes in the femur, and then the wound is copiously lavaged. Pain cocktail is infiltrated throughout. The deep fascia is closed with #2 Ethibond distally, # 2 Vicryl proximally, subcutaneous tissue closed with 3-0 Vicryl, skin with surgical jourdan. Xeroform and 4 x 4's applied in a dry, sterile dressing and a hip wrap. Patient was rolled supine. Abduction pillow was placed. He was awakened from anesthesia and taken to the recovery room in stable condition having tolerated the procedure well. Plan is for standard [facility] rehab protocol, but with strict adherence to the standard posterior hip precautions. CAITLIN
[2017-10-01] MEDS: hydrOXYzine 25 MG TAB PO SCH (21:35)
[2017-10-01] MEDS: ATORVASTATIN 40 MG TAB PO SCH (21:35)
[2017-10-01] MEDS: GABAPENTIN 300 MG CAP PO SCH (21:35)
[2017-10-01] MEDS: APAP/HYDROCODONE 325/7.5 TAB PO PRN (22:56)
[2017-10-02] MEDS: CLINDAMYCIN(*) 900 MG/NS 50 ML 50 ML IVPB SCH ×3 (01:06→16:23)
[2017-10-02 07:29] VITALS: BP 98/47
[2017-10-02] MEDS ORDERED: IV BOLUS 500 ML IVSOL IV ONE (08:30)
[2017-10-02] MEDS: TRIAMTERENE/HCTZ 75-50MG TAB PO SCH (09:00)
[2017-10-02] MEDS: CETIRIZINE HCL 10 MG TAB PO SCH (09:07)
[2017-10-02] MEDS: FAMOTIDINE 20 MG TAB PO SCH (09:08)
[2017-10-02] MEDS: FLUoxetine HCL 20 MG CAP PO SCH (09:08)
[2017-10-02] MEDS: CELECOXIB 200 MG CAP PO SCH ×2 (09:10→17:37)
[2017-10-02] MEDS: PANTOPRAZOLE SOD 40 MG TABEC PO SCH (09:10)
[2017-10-02] MEDS: metFORMIN HCL 500 MG TAB PO SCH ×2 (09:10→20:09)
[2017-10-02] MEDS: ACETAMINOPHEN 325 MG TAB PO PRN ×2 (09:11→15:13)
[2017-10-02] MEDS: ASPIRIN 325 MG TAB PO SCH (09:11)
[2017-10-02] MEDS: MONTELUKAST SODIUM 10 MG TAB PO SCH (09:11)
[2017-10-02] MEDS ORDERED: DILTIAZEM CD 120 MG CAPCR PO SCH (11:30)
[2017-10-02 11:40] VITALS: BP 94/52
--- NOTE | 2017-10-02 13:45 | Hospitalist Progress Note ---
Subjective Progress Notes Subjective He has no complaints this morning. Patient Complains of: Cardiovascular: No: Chest Pain Respiratory: No: Shortness of Breath Physical Exam Vital Signs Date Time Temp Pulse Resp B/P (MAP) Pulse Ox O2 Delivery O2 Flow Rate FiO2 10/02/17 12:25 95 10/02/17 11:40 98.5 73 16 94/52 (66) Nasal Cannula 1.0 Intake and Output 10/03/17 07:00 Intake Total 1613 ml Balance 1613 ml Intake Oral 1060 ml IV Total 553 ml General Appearance: Alert, Awake, No Acute Distress, Afebrile Neuro: No Gross deficits Cardiovascular: Regular Rate and Rhythm Respiratory: No Respiratory Distress, Clear to Auscultation GI: Soft and Non-Tender Psych: Alert & Oriented X3, Appropriate Mood & Affect Result Diagram: 10/02/17 0519 Assessment and Plan Problems: (1) Status post left hip replacement Status: Acute Assessment & Plan: Followed by Dr. Underwood. He will be placed on Aspirin 325mg daily for DVT prophylaxis. He has no history of DVT or PE. (2) Hypertension Status: Chronic Assessment & Plan: He is on chronic treatment with Triamterene and Hydrochlorothiazide. These were restarted with parameters. However, his blood pressure has been in the 80-90's systolic post-operative. At this time, we will give another bolus of Normal Saline 500ml. He is asymptomatic from his blood pressures. Continue to monitor. (3) Diabetes mellitus, type 2 Status: Chronic Assessment & Plan: He is on chronic treatment with Metformin. (4) GERD (gastroesophageal reflux disease) Status: Chronic Assessment & Plan: He is on chronic treatment with Protonix. (5) Situational anxiety Status: Acute Assessment & Plan: He is on chronic treatment with Ativan and Fluoxetine. (6) Seasonal allergies Status: Chronic Assessment & Plan: He is on chronic treatment with Singulair and Zyrtec. Exam Sepsis Risk: No Definite Risk CECILIA MARTINEZ ENVIRONMENTAL PROTECTION OFFICER Oct 02, 2017 13:45
[2017-10-02 14:10] VITALS: BP 112/50
[2017-10-02] MEDS: LORazepam 1 MG TAB PO SCH (14:33)
[2017-10-02 15:19] VITALS: Ht 172.7 cm; Wt 101.6 kg
[2017-10-02 19:55] VITALS: BP 120/59
[2017-10-02] MEDS: ATORVASTATIN 40 MG TAB PO SCH (20:09)
[2017-10-02] MEDS: hydrOXYzine 25 MG TAB PO SCH (20:09)
[2017-10-02] MEDS: GABAPENTIN 300 MG CAP PO SCH (20:09)
[2017-10-02] MEDS: APAP/HYDROCODONE 325/7.5 TAB PO PRN (22:57)
[2017-10-02 23:04] VITALS: BP 135/70
[2017-10-03 04:17] VITALS: BP 137/70
[2017-10-03 07:36] VITALS: BP 117/64
[2017-10-03] MEDS ORDERED: HYDR-4308 PO (08:44)
[2017-10-03] MEDS: TRIAMTERENE/HCTZ 75-50MG TAB PO SCH (09:00)
[2017-10-03] MEDS: ACETAMINOPHEN 325 MG TAB PO PRN (09:14)
[2017-10-03] MEDS: FLUoxetine HCL 20 MG CAP PO SCH (09:15)
[2017-10-03] MEDS: metFORMIN HCL 500 MG TAB PO SCH (09:15)
[2017-10-03] MEDS: LORazepam 1 MG TAB PO SCH (09:15)
[2017-10-03] MEDS: CELECOXIB 200 MG CAP PO SCH (09:15)
[2017-10-03] MEDS: CETIRIZINE HCL 10 MG TAB PO SCH (09:15)
[2017-10-03] MEDS: MONTELUKAST SODIUM 10 MG TAB PO SCH (09:15)
[2017-10-03] MEDS: ASPIRIN 325 MG TAB PO SCH (09:15)
[2017-10-03] MEDS: FAMOTIDINE 20 MG TAB PO SCH (09:15)
[2017-10-03] MEDS: PANTOPRAZOLE SOD 40 MG TABEC PO SCH (09:15)
--- NOTE | 2017-10-03 09:51 | Hospitalist Progress Note ---
Subjective Progress Notes Subjective He has no complaints this morning. He states he is ready to go home. Patient Complains of: Cardiovascular: No: Chest Pain Respiratory: No: Shortness of Breath Physical Exam Vital Signs Date Time Temp Pulse Resp B/P (MAP) Pulse Ox O2 Delivery O2 Flow Rate FiO2 10/03/17 07:44 Room Air 10/03/17 07:36 99.0 74 18 117/64 (81) 90 10/03/17 04:17 1.0 Intake and Output 10/04/17 07:00 Intake Total 240 ml Balance 240 ml Intake Oral 240 ml General Appearance: Alert, Awake, No Acute Distress, Afebrile Neuro: No Gross deficits Cardiovascular: Regular Rate and Rhythm Respiratory: No Respiratory Distress, Clear to Auscultation GI: Soft and Non-Tender Psych: Alert & Oriented X3, Appropriate Mood & Affect Result Diagram: 10/02/17 0519 Assessment and Plan Problems: (1) Status post left hip replacement Status: Acute Assessment & Plan: Followed by Dr. Underwood. He will be placed on Aspirin 325mg daily for DVT prophylaxis. He has no history of DVT or PE. (2) Hypertension Status: Chronic Assessment & Plan: He is on chronic treatment with Triamterene and Hydrochlorothiazide. However, his blood pressure has been in the 80-100's systolic post-operative. He is asymptomatic from his blood pressures. We will stop his blood pressure medication and he will follow up with his PCP next week. (3) Diabetes mellitus, type 2 Status: Chronic Assessment & Plan: He is on chronic treatment with Metformin. (4) GERD (gastroesophageal reflux disease) Status: Chronic Assessment & Plan: He is on chronic treatment with Protonix. (5) Situational anxiety Status: Acute Assessment & Plan: He is on chronic treatment with Ativan and Fluoxetine. (6) Seasonal allergies Status: Chronic Assessment & Plan: He is on chronic treatment with Singulair and Zyrtec. Copies to: JHOAN IGLESIAS Exam Sepsis Risk: No Definite Risk CECILIA MARTINEZP Oct 03, 2017 09:51
== END 2017-10-03 10:45 | disposition home or self-care (01) | DRG 470 ==
LOC: OR 00:07 → MED 13:35
PROVIDERS: ADMIT Orthopaedic Surgery; ATTEND Orthopaedic Surgery
PROC: 0SRB04Z Replacement of Left Hip Joint with Ceramic on Polyethylene Synthetic Substitute, Open Approach (ICD-10-PCS; principal; 2017-10-01 09:38)
DX: M16.12 Unilateral primary osteoarthritis, left hip (principal); I10 Essential (primary) hypertension; F17.220 Nicotine dependence, chewing tobacco, uncomplicated; E11.9 Type 2 diabetes mellitus without complications; K21.9 Gastro-esophageal reflux disease without esophagitis; F41.8 Other specified anxiety disorders; Z79.84 Long term (current) use of oral hypoglycemic drugs; Z88.0 Allergy status to penicillin
CPT/HCPCS: 36415; 36416; 72170; 82310; 82374; 82435; 82565; 82947; 82948; 84132; 84295; 84520; 85610; 86850; 86900; 86901; 97161; 97165; J0131; J0171; J0735; J1100; J1170; J1885; J2001; J2370; J2405; J2704; J2795; J3010; J3490; J7030; J7050; J7060

== ENCOUNTER 2017-10-21 08:49 | Emergency (ER) | payer MEDICARE, OTHER ==
[~2017-10-21 08:49] MED LIST changes: +HYDR-4308 PO; -METF-410 PO; +METF-411 PO; -METF-420 PO; +METF-421 PO
--- NOTE | 2017-10-21 08:55 | ER Report ---
History and Physical Time Seen By MD: 08:55 HPI/ROS CHIEF COMPLAINT: LLE Swelling HISTORY OF PRESENT ILLNESS: Patient is a 72-year-old male here with complaints of left lower extremity edema status post left total hip replacement on the . Patient reports that the swelling has come down however this morning he was evaluated by physical therapy who sent him to the hospital due to concern for possible DVT. Patient reports that the swelling has improved and that the mild erythema has not been painful or bothersome to him. Patient is afebrile and denies chest pain, shortness of breath, abdominal pain, nausea, vomiting, dysuria, hematuria, melena or hematochezia. Allergies: Coded Allergies: penicillin (Unverified Allergy, Unknown, ANAPHYLAXIS, 08/18/17) Home Meds Active Scripts Pantoprazole Sodium (PANTOPRAZOLE SODIUM) 40 Mg Tablet.dr, 40 MG PO QDAY, #30 TAB.SR 3 Refills Prov:KATHRINE BLUE MD 08/29/17 Reported Medications Hydrocodone Bit/Acetaminophen (NORCO 7.5-325 TABLET) 1 Each Tablet, 1-2 TAB PO Q6H Y for PAIN 10/03/17 Hydroxyzine Hcl (HYDROXYZINE HCL) 25 Mg Tablet, 25 MG PO QHS 10/01/17 Montelukast Sodium (SINGULAIR) 10 Mg Tablet, 1 TAB PO QDAY, TAB 09/24/17 Famotidine (PEPCID) 20 Mg Tablet, 20 MG PO QDAY, #10 TAB 09/24/17 Psyllium Husk (with Sugar) (Metamucil Packet) 3.4 Gram Powd.pack, 12 GM PO DAILY 09/24/17 Lorazepam (LORAZEPAM) 1 Mg Tab, 1 MG PO DAILY for Anxiety, TAB 08/26/17 Cetirizine Hcl (ZYRTEC) 10 Mg Capsule, 10 MG PO QDAY, CAPSULE 08/18/17 Fluoxetine Hcl (FLUOXETINE HCL) 20 Mg Capsule, 40 MG PO QDAY, CAPSULE 08/18/17 [place]-3S/Dha/Epa/Fish Oil (Fish Oil 1,200 mg Softgel) 720-1,200MG Capsule. 08/02/17 Metformin Hcl (METFORMIN HCL) 1,000 Mg Tablet, 1 TAB PO BID, TAB 08/02/17 Gabapentin (GABAPENTIN) 300 Mg Capsule, 600 MG PO QHS, CAPSULE 08/02/17 Atorvastatin Calcium (ATORVASTATIN CALCIUM) 40 Mg Tablet, 1 TAB PO QDAY, TAB 01/10/15 Past Medical/Surgical History Hypertension, hyperlipidemia, pneumonia, esophageal reflux, diabetes, anxiety, Hx Smoking: Yes Smoking Status: Light Tobacco Smoker Exposure to Second Hand Smoke?: Yes Hx Substance Use Disorder: No Hx Alcohol Use: Yes Constitutional Vital Sign - Last 24 Hours 10/21/17 08:58 Temp 98.6 Pulse 67 B/P (MAP) 133/59 Physical Exam General Appearance: The patient is alert, has no immediate need for airway protection and no current signs of toxicity. Eyes: Pupils equal and round no injection. Respiratory: Chest is non tender, lungs are clear to auscultation. Cardiac: regular rate and rhythm Gastrointestinal: Abdomen is soft and non tender, no masses, bowel sounds normal. Musculoskeletal: Extremities have full range of motion and a+ mild TTP left lower leg and calf with mild edema and erythema Skin: + mild erythema of the LLE DIFFERENTIAL DIAGNOSIS: After history and physical exam differential diagnosis was considered for Improving edema post op, cellulitis early, DVT Medical Decision Making ED Course/Re-evaluation ED Course Patient is a 72-year-old male here with complaints of left lower extremity edema postop from a left total hip replacement on the . Patient reports that his swelling is improved however he does have mild erythema and mild calf tenderness which prompted evaluation today. She is afebrile, normotensive, not tachycardic. Duplex of the lower extremity was ordered for DVT rule out. D- dimer would've been elevated due to postop status, so this was not of utility for current evaluation. Duplex venogram was negative for DVT. Decision to Disposition Date: October 21, 2017 Decision to Disposition Time: 10:39 Depart Departure Latest Vital Signs Vital Signs Date Time Temp Pulse Resp B/P (MAP) Pulse Ox O2 Delivery O2 Flow Rate FiO2 10/21/17 08:58 98.6 67 133/59 Impression: Primary Impression: Edema of leg Condition: Condition Unchanged Disposition: HOME OR SELF-CARE Referrals: JHOAN IGLESIAS (PCP) Patient Instructions: Leg Edema (ED) Additional Instructions: Please continue physical therapy as previously scheduled. Return promptly if you develope chest pain, shortness of breath, fevers, chills, worsening swelling of your leg, worsening redness or pain of the leg. SERGEI JARQUIN DO October 21, 2017 08:55
[2017-10-21 10:30] VITALS: BP 119/62
--- NOTE | 2017-10-21 10:58 | RADIOLOGY IMAGING REPORT ---
FACILITY: [facility] - [place] PATIENT NAME: Ousmane Norton : 1945 MR: [id number] V: [id number] EXAM DATE: ORDERING PHYSICIAN: SERGEI JARQUIN TECHNOLOGIST: Location: [facility] - [place] Patient: Ousmane Norton : 1945 Visit/Account:[id number] Date of Sevice: 10/21/2017 VENOUS DOPP LOW LEFT EXTREMITY HISTORY: swelling and redness COMPARISON: None. FINDINGS: Grayscale, duplex and color Doppler interrogation of the left lower extremity deep veins from common femoral vein to proximal calf was completed. The greater saphenous vein in the proximal thigh was juana luated using similar technique. Common femoral vein - Negative. Femoral vein - Negative. Deep femoral vein - Negative. Popliteal vein - Negative. Visualized deep calf veins - Negative. Popliteal fossa: Negative. Greater saphenous vein in the proximal thigh: Negative. Additional findings: Mild below knee subcutaneous edema. IMPRESSION: 1. Negative left lower extremity ultrasound for venous thrombus. 2. Mild below knee subcutaneous edema. Report Dictated By: Patel Be MD at 10/21/2017 10:53 AM Report E-Signed By: Patel Be MD at 10/21/2017 10:54 AM WSN:[id number]
== END 2017-10-21 10:57 | disposition home or self-care (01) ==
LOC: ER 08:51
DX: R60.0 Localized edema (principal)
CPT/HCPCS: 99283

== ENCOUNTER 2017-11-22 08:15 | Outpatient (RCR) | payer MEDICARE, OTHER ==
--- NOTE | 2017-10-08 20:07 | PT INITIAL EVALUATION ---
MEDICAL DIAGNOSIS: L total hip arthroplasty TREATMENT DIAGNOSIS: same, altered gait DATE OF ONSET: 10/01/17 SUBJECTIVE: Ousmane Norton presents to physical therapy status post L total hip arthroplasty on the September. He reports that he is able to maintain all of his hip precautions. He reports that he feels like walking is getting much better. He reports that he feels like the incision is healing well. He denies any fever or chills. He rates his current pain to be 3-4/10. He reports that the pain is getting better and feels more like surgical pain versus the bone pain that he felt prior to the surgery. He reports that steps and stairs are going well. He reports that he would like to get back to walking with a cane and being able to get back to driving and fishing. He recalled all of his current hip precautions. Pain location is L lateral hip and described as surgical pain. Pain scale is 4 on a ten point pain scale. Pain is worse with prolonged rest and better with movement. REHAB PROBLEM LIST: Increased Pain Decreased ROM Decreased Strength Decreased Endurance Decreased Balance Decreased Function Decreased ADL's Decreased Mobility Decreased Gait PREVIOUS MEDICAL HISTORY: See EMR OCCUPATION: Retired OBJECTIVE: His incision is healing well. He demonstrates zero signs or symptoms of infection. Posture: He demonstrated forward head, B rounded shoulders, increased thoracic kyphosis, and decreased lumbar lordosis. ROM: Will address in the future due to recent surgical intervention Strength: Will test in the future due to recent surgical intervention Palpation: TTP: L lateral hip around incision Sensation: Intact L1-S2 Special Tests: FOTO hip functional status: : 48% impairment Mobility: Modified Independent Gait: With 4WW: he demonstrated the following gait mechanics: equal step lengths, increased base of support, decreased velocity, increased double limb support, increased stance time throughout the phases of the gait, decreased swing time throughout the phases of the gait, decreased pelvic mobility, and decreased B UE swing. Balance: Will test in the future ASSESSMENT: Ousmane will benefit from skilled physical therapy addressing the listed impairments to improve function and QOL per protocol. Short Term Goals 3 weeks: Pt will be able to transition from 4WW to cane to improve function and QOL. 6 weeks: Pt will demonstrate B LE strength from baseline to 4+/5 or greater to improve function and QOL. 6 weeks: Pt will return to driving and fishing to return to prior level of function to improve function and QOL Patient's Goals return to fishing and driving without any pain PLAN: Patient to be seen for Manual Therapy/STM/MET Strengthening/condition Ice/Heat Range of Motion Spinal Stabilization Work Hardening/Cond Stretching Iontophoresis Neuromuscular Re-ed Closed Chain Program Electrical Stim Posture/Body mechanics Gait Trg/Balance Trg Home Exercise Program Therapeutic Activities 2-3x/week for 6 Weeks If you have any questions, comments, or concerns about this report or plan, please contact me at . Thank you, Jordin Bowman, PT, DPT MTDD
--- NOTE | 2017-11-06 09:50 | PT PLAN OF CARE ---
Physician: Meir Underwood MD Appointment: November 09, 2107 Patient is being seen: 2-3x/week Therapist: Sheila Melton PT Medical Diagnosis: L total hip arthroplasty Treatment Diagnosis: same, altered gait Date of Onset: 10/01/17 Date of Initial Evaluation: 10/07/17 Date patient was last seen: 11/06/17 Number of treatments: 8 Number of cancellations/No shows: 0 INTERVENTIONS: L SHARDA therapeutic exercise, gait and balance training, cold pack , HEP GOALS: 3 weeks: Pt will be able to transition from 4WW to cane to improve function and QOL. met 6 weeks: Pt will demonstrate B LE strength from baseline to 4+/5 or greater to improve function and QOL. progressing 6 weeks: Pt will return to driving and fishing to return to prior level of function to improve function and QOL. not met PATIENT'S GOAL: return to fishing and driving without any pain. not met Patient Compliance: Excellent Prognosis: Excellent Reasons for continuing therapy: S: Ousmane relates his L hip is doing well, aches by late afternoon, 2-3/10 pain scale. He isn't driving yet but is doing light house work and uses his stairs without difficulty. Hip FOTO improved from 48 to 44% impairment. He was seen in our ED due to a Wells score of 3 on October 21, and was negative for DVT. O: Gait: SPC, short step length with feet clearing the floor. Ousmane was able to complete 3.25 minutes of the 6 min. walk test with gait speed 1.4 ft/second, O2 sats on room air 93 to 88%, HR 82 to 107 BPM with SPC, distance 513 feet. He ambulates over soft surface with SPC slowly with balance control. Balance: Double limb support on foam, eyes shut: increased postural sway with narrow SONAM, normal sway with wide SONAM. Mobility: Ousmane follows hip precautions in transfers. ROM: AROM L hip extension 0 degrees, tight hip flexors, abduction 30 degrees. Other: Tight soft tissue in the distal pre-tibial and peroneals area. [place] R LE, with inverted calcaneus. A/P: Ousmane Norton is improving gait, function, balance following his L SHARDA. If you agree, we'll continue to goals set, 2-3x/week another month. Thank you. CAITLIN
--- NOTE | 2017-11-22 09:18 | PT PLAN OF CARE ---
Physician: Meir Underwood MD Patient is being seen: 2x/week Therapist: Jordin Bowman, PT, DPT Medical Diagnosis: L total hip arthroplasty Treatment Diagnosis: same, altered gait Date of Onset: 10/01/17 Date of Initial Evaluation: 10/07/17 Date patient was last seen: 11/22/17 Number of treatments: 15 Number of cancellations/No shows: 0 INTERVENTIONS: Manual Therapy/STM/MET Strengthening/condition Ice/Heat Range of Motion Spinal Stabilization Work Hardening/Cond Stretching Iontophoresis Neuromuscular Re-ed Closed Chain Program Electrical Stim Posture/Body mechanics Gait Trg/Balance Trg Home Exercise Program Therapeutic Activities GOALS: 3 weeks: Pt will be able to transition from 4WW to cane to improve function and QOL. MET 6 weeks: Pt will demonstrate B LE strength from baseline to 4+/5 or greater to improve function and QOL. MET 6 weeks: Pt will return to driving and fishing to return to prior level of function to improve function and QOL. MET PATIENT'S GOAL: return to fishing and driving without any pain. MET Status of Patient's Goals: MET Patient Compliance: Good Prognosis: Excellent Reasons for continuing therapy: This is a discharge note for Ousmane Norton. He reports that he is doing well. He reports that he feels comfortable with walking without AD on even or uneven surfaces. He reports that he is independent with home management, driving, ADL's, and dressing/showering. He reports that he feels independent with his home exercise program. He denies any hip pain. He has progressed well within PT with the following improvements: return to prior level of function, return to prior level with gait mechanics, increased endurance, increased B LE core and B LE strength, abolished L LE edema /swelling, independent with his home exercise program, and significant improvement with balance strategies in all conditions, return to prior level of function with level and uneven surfaces. He has met all of his goals. As a result, he will be discharged from PT. Posture: He demonstrated forward head, B rounded shoulders, increased thoracic kyphosis, and decreased lumbar lordosis. Strength: B hip abduction, adduction, extension, B knee flexion and extension, B ankle DF and PF: 4+/5 Palpation: TTP: No longer TTP FOTO hip functional status: 52/50: 16% impairment Mobility: Independent If you have any questions, please contact me at [phone]. Thank you, Jordin Bowman, PT, DPT MTDD
== END 2017-11-22 18:00 | disposition home or self-care (01) ==
LOC: PT 08:15
PROVIDERS: ATTEND Orthopaedic Surgery
DX: Z47.1 Aftercare following joint replacement surgery (principal); Z96.642 Presence of left artificial hip joint; R26.89 Other abnormalities of gait and mobility; M25.552 Pain in left hip
CPT/HCPCS: 97162

== ENCOUNTER → 2018-03-06 | Outpatient (CLI) | payer MEDICARE, OTHER ==
[~2018-03-06] MED LIST changes: -METF-411 PO; -METF-421 PO; +METF-450 PO; +METF-452 PO
--- NOTE | 2018-03-06 15:05 | RADIOLOGY IMAGING REPORT ---
FACILITY: PATIENT NAME: Ousmane Norton : 1945 MR: [id number] V: [id number] EXAM DATE: ORDERING PHYSICIAN: JHOAN IGLESIAS TECHNOLOGIST: Location: [facility] [place] Patient: Ousmane Norton : 1945 Visit/Account:[id number] Date of Sevice: 03/06/2018 THYROID HISTORY: Thyroid nodule right lobe COMPARISON: August 23, 2017 FINDINGS: SIZE: Right lobe: 3.9 x 1.5 x 1.2 cm Left lobe: 3.9 x 1 x 1.1 cm Isthmus: 2.5 mm PARENCHYMA: Mildly heterogeneous NODULES: Right lobe: * There is a 5.4 mm well-circumscribed hypoechoic nodule in the mid to inferior aspect of the right lobe that appears relatively unchanged Left lobe: * None discrete. Isthmus: * None discrete. VASCULARITY: Within normal limits. ADDITIONAL FINDINGS: None. IMPRESSION: 5.4 mm relatively well-circumscribed hypoechoic nodule in the mid to inferior aspect the right lobe a ppears relatively unchanged REFERENCE: 2015 [place] [employer] Management Guidelines for Adult Patients with Thyroid Nodules and D ifferentiated Thyroid Cancer: The [place] [employer] Guidelines Task Force on Thyroid Nodul es and Differentiated Thyroid Cancer. SONOGRAPHIC PATTERNS: * Benign: Purely cystic nodules (no solid component); estimated risk of malignancy <1 percent; no bi opsy recommended. * Very Low Suspicion: Spongiform or partially cystic nodules without any of the sonographic features described in low, intermediate, or high suspicion patterns; estimated risk of malignancy <3 percent; consider FNA at > 2 cm (Observation without FNA is also a reasonable option). * Low Suspicion: Isoechoic or hyperechoic solid nodule, or partially cystic nodule with eccentric so lid areas, without microcalcification, irregular margin or ETE (extra-thyroidal extension), or taller than wide shape; estimated risk of malignancy 5-10 percent; recommend FNA at >1.5 cm. * Intermediate Suspicion: Hypoechoic solid nodule with smooth margins without microcalcifications, E TE (extra-thyroidal extension), or taller than wide shape; estimated risk of malignancy 10-20 percent ; recommend FNA at > 1 cm. * High Suspicion: Solid hypoechoic nodule or solid hypoechoic component of a partially cystic nodule with one or more of the following features: irregular margins (infiltrative, microlobulated), microc alcifications, taller than wide shape, rim calcifications with small extrusive soft tissue component, evidence of ETE (extra-thyroidal extension); estimated risk of malignancy >70-90 percent; recommend FNA at > 1 cm. NOTES: * Although a sonographically suspicious subcentimeter thyroid nodule without evidence of extrathyroi dhaval extension or sonographically suspicious lymph nodes may be observed with close sonographic follow -up rather than pursuing immediate FNA, patient age and preference may modify decision-making. A > 50% interval increase in nodule volume and/or development of new suspicious sonographic features are felt to be a valid reasons for potential re-aspiration of a nodule previously shown to have benig n FNA cytology. Report Dictated By: Michaelle Andre MD at 03/06/2018 2:58 PM Report E-Signed By: Michaelle Andre MD at 03/06/2018 3:00 PM KRISHN:[email or web address]
== END ==
LOC: US 01:14
PROVIDERS: ATTEND Nurse Practitioner Family
DX: E04.1 Nontoxic single thyroid nodule (principal)
CPT/HCPCS: 76536

== ENCOUNTER 2018-04-24 14:33 | Emergency (ER) | payer MEDICARE, OTHER ==
[~2018-04-24 14:33] MED LIST changes: -HYDR-4308 PO; +HYDR-654 PO
[2018-04-24] MEDS ORDERED: ACETAMINOPHEN 325 MG TAB PO ONE (15:15)
[2018-04-24] MEDS ORDERED: AMPICILLIN/SULBACT (*) 3 GM VL 3 GM in NS(*) 0.9% 100 ML BAG 100 ML IVPB ONE (15:15)
[2018-04-24] MEDS ORDERED: LR IV ONE (15:15)
[2018-04-24 15:29] LABS: PLATELET COUNT, AUTOMATED 154 K/uL (150-450)
--- NOTE | 2018-04-24 16:19 | RADIOLOGY IMAGING REPORT ---
FACILITY: [facility] - [place] PATIENT NAME: Ousmane Norton : 1945 MR: [id number] V: [id number] EXAM DATE: ORDERING PHYSICIAN: DON OWENS TECHNOLOGIST: Location: [facility] - [place] Patient: Ousmane Norton : 1945 Visit/Account:[id number] Date of Sevice: 04/24/2018 Study: Single portable view of the chest. Indication: Fever, history of recent dental surgery Comparison study: August 18, 2017 Technique: Single AP view of the chest demonstrates no evidence of acute infiltrate. There is no evid ence of pleural effusion or pneumothorax. The mediastinal, cardiac, and diaphragmatic contours are un remarkable. IMPRESSION: Unremarkable chest. Report Dictated By: German Sam at 04/24/2018 3:47 PM Report E-Signed By: German Sam at 04/24/2018 4:14 PM WSN:[id number]
--- NOTE | 2018-04-24 17:04 | EKG ---
FACILITY: [facility] - [place] PATIENT NAME: VICTORIA TINOCO : [id number] MR: [id number] V: [id number] EXAM DATE: ORDERING PHYSICIAN: DON OWENS TECHNOLOGIST: AUBREY Test Reason : BLOOD POISONING Blood Pressure : / mmHG Vent. Rate : 109 BPM Atrial Rate : 109 BPM P-R Int : 160 ms QRS Dur : 096 ms QT Int : 344 ms P-R-T Axes : 064 021 044 degrees QTc Int : 463 ms Sinus tachycardia Otherwise normal ECG When compared with ECG of 02-AUG-2017 10:46, Vent. rate has increased BY 50 BPM Confirmed by KAVITA GUTIERREZ ([id number]) on 04/24/2018 6:28:37 PM Referred By: JHOAN IGLESIAS Confirmed By:KAVITA GUTIERREZ
--- NOTE | 2018-04-24 17:19 | ER Report ---
History and Physical Time Seen By MD: 13:00 Hx. of Stated Complaint: TERRIBLE SHAKES HPI/ROS CHIEF COMPLAINT: shakes, chills HISTORY OF PRESENT ILLNESS: Pt has 4 d hx of right periodontal infection; was placed on amoxicillin/clindamycin yesterday; this am pt took abx, then at 1130 had abscess drainage by dentist, via maxillary dentition; pt tolerated this but 1 hr later developed fever, chills, shaking without other focal symptoms. Symptoms continue now. No prior similar events. Symptoms are severe and constant since 1230 though slightly improving. REVIEW OF SYSTEMS: Constitutional: above Eyes: No discharge. ENT: above Cardiovascular: No chest pain, no palpitations. Respiratory: No cough, no shortness of breath. Gastrointestinal: No abdominal pain, no vomiting. Genitourinary: No hematuria. Musculoskeletal: No back pain. Skin: No rashes. Neurological: No headache. Remainder of the 14 system rev: Yes Allergies: Coded Allergies: No Known Allergies (Verified Allergy, Unknown, 04/24/18) Home Meds Active Scripts Amoxicillin/Pot Clav 875-125 Mg Tab (AUGMENTIN 875-125 TABLET) 1 Each Tablet, 1 TAB PO Q12H for 7 Days, #14 TAB Prov:DON OWENS MD 04/24/18 Reported Medications Hydroxyzine Hcl (HYDROXYZINE HCL) 25 Mg Tablet, 25 MG PO QHS 10/01/17 Montelukast Sodium (SINGULAIR) 10 Mg Tablet, 1 TAB PO QDAY, TAB 09/24/17 Famotidine (PEPCID) 20 Mg Tablet, 20 MG PO QDAY, #10 TAB 09/24/17 Psyllium Husk (with Sugar) (Metamucil Packet) 3.4 Gram Powd.pack, 12 GM PO DAILY 09/24/17 Cetirizine Hcl (ZYRTEC) 10 Mg Capsule, 10 MG PO QDAY, CAPSULE 08/18/17 Fluoxetine Hcl (FLUOXETINE HCL) 20 Mg Capsule, 40 MG PO QDAY, CAPSULE 08/18/17 Metformin Hcl (METFORMIN HCL) 1,000 Mg Tablet, 1 TAB PO BID, TAB 08/02/17 Gabapentin (GABAPENTIN) 300 Mg Capsule, 600 MG PO QHS, CAPSULE 08/02/17 Atorvastatin Calcium (ATORVASTATIN CALCIUM) 40 Mg Tablet, 1 TAB PO QDAY, TAB 01/10/15 Discontinued Reported Medications Hydrocodone Bit/Acetaminophen (NORCO 7.5-325 TABLET) 1 Each Tablet, 1-2 TAB PO Q6H PRN for PAIN 10/03/17 Lorazepam (LORAZEPAM) 1 Mg Tab, 1 MG PO DAILY for Anxiety, TAB 08/26/17 [place]-3S/Dha/Epa/Fish Oil (Fish Oil 1,200 mg Softgel) 720-1,200MG Capsule. 08/02/17 Discontinued Scripts Pantoprazole Sodium (PANTOPRAZOLE SODIUM) 40 Mg Tablet., 40 MG PO QDAY, #30 TAB.SR 3 Refills Prov:KATHRINE BLUE MD 08/29/17 Reviewed Nurses Notes: Yes Hx Smoking: Yes Smoking Status: Light Tobacco Smoker Exposure to Second Hand Smoke?: Yes Hx Substance Use Disorder: No Hx Alcohol Use: Yes Constitutional Vital Sign - Last 24 Hours 04/24/18 04/24/18 04/24/18 04/24/18 14:33 14:40 14:46 15:00 Temp 101.4 Pulse 117 110 Resp 22 B/P (MAP) 117/65 (82) 117/65 126/61 (82) Pulse Ox 91 O2 Delivery Room Air 04/24/18 04/24/18 04/24/18 04/24/18 15:03 15:43 15:46 15:48 Pulse 112 111 112 Resp 17 14 20 B/P (MAP) 134/74 (94) Pulse Ox 86 91 94 O2 Delivery Room Air Nasal Cannula Nasal Cannula O2 Flow Rate 2 2 04/24/18 04/24/18 04/24/18 04/24/18 16:00 16:18 16:30 16:48 Temp 100.6 Pulse 109 109 Resp 33 22 B/P (MAP) 142/62 (88) 127/62 (83) Pulse Ox 94 93 O2 Delivery Nasal Cannula Nasal Cannula O2 Flow Rate 2 2 04/24/18 04/24/18 04/24/18 04/24/18 16:53 17:00 17:23 17:30 Pulse 108 107 Resp 27 24 B/P (MAP) 130/65 (86) 131/68 (89) Pulse Ox 95 93 O2 Delivery Nasal Cannula Nasal Cannula O2 Flow Rate 2 2 04/24/18 04/24/18 04/24/18 04/24/18 17:53 17:58 18:00 18:28 Pulse 108 111 108 Resp 25 13 25 B/P (MAP) 126/76 (93) Pulse Ox 92 95 93 O2 Delivery Nasal Cannula Nasal Cannula Nasal Cannula O2 Flow Rate 2 2 2 04/24/18 04/24/18 04/24/18 04/24/18 18:30 18:35 18:50 19:00 Pulse 108 109 89 Resp 25 26 16 B/P (MAP) 127/63 (84) 132/82 (99) Pulse Ox 93 95 O2 Delivery Room Air 04/24/18 19:07 Temp 97.8 Physical Exam General Appearance: The patient is alert, has no immediate need for airway protection and no signs of toxicity. Eyes: Pupils equal and round no pallor or injection. ENT, Mouth: Mucous membranes are moist. Left malar erythema/edema c/w pt's known infection Respiratory: There are no retractions, lungs are clear to auscultation. Cardiovascular: tachycardia, NO murmurs Gastrointestinal: Abdomen is soft and non tender, no masses, bowel sounds normal. Neurological: alert, oriented, nad Skin: Warm and dry, no rashes. Musculoskeletal: Neck is supple non tender. No LAD Extremities are nontender, nonswollen and have full range of motion. DIFFERENTIAL DIAGNOSIS: After history and physical exam differential diagnosis was considered for sepsis, endocarditis, pneumonia, septic arthritis, electrolyte d/o, arrhythmia, or other emergent etiology Medical Decision Making Data Points Result Diagram: 04/24/18 1832 04/24/18 1521 Laboratory Hematology Test 04/24/18 15:21 04/24/18 15:27 04/24/18 18:32 Sodium Level 141 mmol/L (137-145) Potassium Level 3.7 mmol/L (3.5-5.0) Chloride Level 104 mmol/L (98-107) Carbon Dioxide Level 26 mmol/L (22-30) Blood Urea Nitrogen 19 mg/dl (9-21) Creatinine 1.20 mg/dl (0.66-1.25) Glomerular Filtration Rate Calc 59.5 Random Glucose 110 mg/dl (75-110) Calcium Level 9.8 mg/dl (8.4-10.2) Total Bilirubin 0.8 mg/dl (0.2-1.3) Aspartate Amino Transf (AST/SGOT) 21 U/L (0-35) Alanine Aminotransferase (ALT/SGPT) 32 U/L (0-56) Alkaline Phosphatase 104 U/L (0-126) Total Protein 7.4 g/dl (6.3-8.2) Albumin 3.9 g/dl (3.5-5.0) Urine Color Yellow Urine Clarity Clear Urine pH 5.0 pH (4.8-9.5) Urine Specific [place] 1.023 Urine Protein 30 mg/dL (NEGATIVE) Urine Glucose (UA) Negative mg/dL (NEGATIVE) Urine Ketones Negative mg/dL (NEGATIVE) Urine Blood Negative (NEGATIVE) Urine Nitrite Negative (NEGATIVE) Urine Bilirubin Negative (NEGATIVE) Urine Urobilinogen 2.0 mg/dL (0.2-1.9) Urine Leukocyte Esterase Negative (NEGATIVE) Urine RBC 1 /HPF (0-2/HPF) Urine WBC 3 /HPF (0-5/HPF) Urine Squamous Epithelial Cells Few /LPF (</=FEW) Urine Bacteria Negative /HPF (NONE-FEW) Urine Mucus Few /HPF (NONE-FEW) Red Blood Count 4.32 M/uL (4.00-5.60) Mean Corpuscular Volume 88.6 fL (80.0-96.0) Mean Corpuscular Hemoglobin 30.4 pg (26.0-33.0) Mean Corpuscular Hemoglobin Concent 34.3 g/dL (32.0-36.0) Red Cell Distribution Width 13.7 % (11.5-14.5) Mean Platelet Volume 7.9 fL (7.2-11.1) Neutrophils (%) (Auto) 86.0 % (39.4-72.5) Lymphocytes (%) (Auto) 7.7 % (17.6-49.6) Monocytes (%) (Auto) 6.0 % (4.1-12.4) Eosinophils (%) (Auto) 0.0 % (0.4-6.7) Basophils (%) (Auto) 0.3 % (0.3-1.4) Nucleated RBC Relative Count (auto) 0.0 /100WBC Neutrophils # (Auto) 4.1 K/uL (2.0-7.4) Lymphocytes # (Auto) 0.4 K/uL (1.3-3.6) Monocytes # (Auto) 0.3 K/uL (0.3-1.0) Eosinophils # (Auto) 0.0 K/uL (0.0-0.5) Basophils # (Auto) 0.0 K/uL (0.0-0.1) Nucleated RBC Absolute Count (auto) 0.00 K/uL Lactate 1.6 mmol/L (0.7-2.1) Chemistry Test 04/24/18 15:21 04/24/18 15:27 04/24/18 18:32 Glomerular Filtration Rate Calc 59.5 Calcium Level 9.8 mg/dl (8.4-10.2) Total Bilirubin 0.8 mg/dl (0.2-1.3) Aspartate Amino Transf (AST/SGOT) 21 U/L (0-35) Alanine Aminotransferase (ALT/SGPT) 32 U/L (0-56) Alkaline Phosphatase 104 U/L (0-126) Total Protein 7.4 g/dl (6.3-8.2) Albumin 3.9 g/dl (3.5-5.0) Urine Color Yellow Urine Clarity Clear Urine pH 5.0 pH (4.8-9.5) Urine Specific [place] 1.023 Urine Protein 30 mg/dL (NEGATIVE) Urine Glucose (UA) Negative mg/dL (NEGATIVE) Urine Ketones Negative mg/dL (NEGATIVE) Urine Blood Negative (NEGATIVE) Urine Nitrite Negative (NEGATIVE) Urine Bilirubin Negative (NEGATIVE) Urine Urobilinogen 2.0 mg/dL (0.2-1.9) Urine Leukocyte Esterase Negative (NEGATIVE) Urine RBC 1 /HPF (0-2/HPF) Urine WBC 3 /HPF (0-5/HPF) Urine Squamous Epithelial Cells Few /LPF (</=FEW) Urine Bacteria Negative /HPF (NONE-FEW) Urine Mucus Few /HPF (NONE-FEW) White Blood Count 4.8 k/uL (4.5-11.0) Red Blood Count 4.32 M/uL (4.00-5.60) Hemoglobin 13.1 g/dL (14.0-18.0) Hematocrit 38.3 % (42.0-52.0) Mean Corpuscular Volume 88.6 fL (80.0-96.0) Mean Corpuscular Hemoglobin 30.4 pg (26.0-33.0) Mean Corpuscular Hemoglobin Concent 34.3 g/dL (32.0-36.0) Red Cell Distribution Width 13.7 % (11.5-14.5) Platelet Count 124 K/uL (150-450) Mean Platelet Volume 7.9 fL (7.2-11.1) Neutrophils (%) (Auto) 86.0 % (39.4-72.5) Lymphocytes (%) (Auto) 7.7 % (17.6-49.6) Monocytes (%) (Auto) 6.0 % (4.1-12.4) Eosinophils (%) (Auto) 0.0 % (0.4-6.7) Basophils (%) (Auto) 0.3 % (0.3-1.4) Nucleated RBC Relative Count (auto) 0.0 /100WBC Neutrophils # (Auto) 4.1 K/uL (2.0-7.4) Lymphocytes # (Auto) 0.4 K/uL (1.3-3.6) Monocytes # (Auto) 0.3 K/uL (0.3-1.0) Eosinophils # (Auto) 0.0 K/uL (0.0-0.5) Basophils # (Auto) 0.0 K/uL (0.0-0.1) Nucleated RBC Absolute Count (auto) 0.00 K/uL Lactate 1.6 mmol/L (0.7-2.1) Urinalysis Test 04/24/18 15:27 Urine Color Yellow Urine Clarity Clear Urine pH 5.0 pH (4.8-9.5) Urine Specific [place] 1.023 Urine Protein 30 mg/dL (NEGATIVE) Urine Glucose (UA) Negative mg/dL (NEGATIVE) Urine Ketones Negative mg/dL (NEGATIVE) Urine Blood Negative (NEGATIVE) Urine Nitrite Negative (NEGATIVE) Urine Bilirubin Negative (NEGATIVE) Urine Urobilinogen 2.0 mg/dL (0.2-1.9) Urine Leukocyte Esterase Negative (NEGATIVE) Urine RBC 1 /HPF (0-2/HPF) Urine WBC 3 /HPF (0-5/HPF) Urine Squamous Epithelial Cells Few /LPF (</=FEW) Urine Bacteria Negative /HPF (NONE-FEW) Urine Mucus Few /HPF (NONE-FEW) Microbiology Microbiology Date/Time Source Procedure Growth Status 04/24/18 15:17 Blood Peripheral Draw Blood Culture - Preliminary NO GROWTH AFTER 2 DAYS, REINCUBATED Resulted EKG/Imaging EKG Interpretation 12 lead EKG: Rhythm: sinus tachycardia [place]: normal QRS: normal ST segments: normal sinus tachycardia Monitor Interpretation: Sinus Tachycardia ED Course/Re-evaluation ED Course Pt is 72 y/o m who had dental extraction today; he presents with fever/rigors/chills approx 1.5 hrs later; this is most c/w bacteremia due to procedure. In ED, pt improves, though remains persistently mildly febrile, tachycardic though improving. Unasyn adminsitered; will reassess lactate/cbc. If all signs improving, and pt comfortable, may be reasonable for d/c. If any concern for persistent bacteremia remains, will consider admit. Of note, pt is s/p l hip replacement; will give precautions vs potential septic joint/endocarditis as potential complication. After first dose abx and monitoring, pt feels significantly improved. Offered further monitoring v d/c; pt is comfortable for d/c at this time and understands SRP's; specifically sgs of endocarditis, sepsis, septic arthritis discussed with pt. Decision to Disposition Date: Apr 24, 2018 Decision to Disposition Time: 18:55 Depart Departure Latest Vital Signs Vital Signs Date Time Temp Pulse Resp B/P (MAP) Pulse Ox O2 Delivery O2 Flow Rate FiO2 04/24/18 19:07 97.8 04/24/18 19:00 89 16 132/82 (99) 95 Room Air 04/24/18 18:28 2 Impression: Primary Impression: Febrile illness, acute Condition: Improved Disposition: HOME OR SELF-CARE Referrals: [facility] [employer] (PCP) New Scripts Amoxicillin/Pot Clav 875-125 Mg Tab (AUGMENTIN 875-125 TABLET) 1 Each Tablet 1 TAB PO Q12H for 7 Days, #14 TAB Prov: ODN OWENS MD 04/24/18 Patient Instructions: Fever in Adults (ED) Additional Instructions: As we discussed, your symptoms were likely due to bacteria release in your bloodstream. If you have chest pain, shortness of breath, or concerning rash, or if you have joint pain, or any other concerns please return immediately for further evaluation. DON OWENS MD Apr 24, 2018 17:19
[2018-04-24 18:48] LABS: PLATELET COUNT, AUTOMATED 124 K/uL (150-450)
[2018-04-24] MEDS ORDERED: AMOX-559 PO (18:53)
[2018-04-24 19:00] VITALS: BP 132/82
== END 2018-04-24 19:08 | disposition home or self-care (01) ==
LOC: ER 16:18
DX: R50.9 Fever, unspecified (principal); R00.0 Tachycardia, unspecified; Z98.890 Other specified postprocedural states
CPT/HCPCS: 36415; 71045; 81001; 83605; 85025; 87040; 93005; 96365; 96366; 99284; A9270; J0295; J7050; J7120; 82040; 82247; 82310; 82374; 82435; 82565; 82947; 84075; 84132; 84155; 84295; 84450; 84460; 84520

== ENCOUNTER 2018-06-24 08:15 | Outpatient (RCR) | payer MEDICARE, OTHER ==
--- NOTE | 2018-04-01 09:40 | PT INITIAL EVALUATION ---
MEDICAL DIAGNOSIS: weakness, strengthening TREATMENT DIAGNOSIS: same, LBP with radiating pain DATE OF ONSET: 12/30/17 SUBJECTIVE: Ousmane Norton presents to physical therapy with complaints of B thigh and hip pain that started following a fall at a T-ball game in which he was sitting down on his 4WW and rolled off the curve and fell off backwards injuring his tailbone. Furthermore, he reports that the thigh and hip pain started at the same time as a fall and as the tailbone pain did. He reports that the tailbone pain has gotten better but continues to have difficulty with the thigh and hip pain. He reports that following the fall he was placed on medications to reduce inflammation but once the inflammation reduced he continued to have the B thigh and hip pain as a result of the thigh. As a result of the pain, he reports that his activity level has significantly reduced. He reports that the am he has the worst amount of thigh and hip pain and gets better as he moves and becomes more active and also becomes worse if he walks or stands too much; however, if he sits down for a few minutes the pain completely abolished within minutes. He reports that the pain is better with some days and worse with other days. He describes the pain to be a dull ache. He rates moderate pain with standing and walking if he goes to far and 0/10 pain with sitting. He reports that the sleeps in his recliner at night and has been doing it for many years. Pain location is anterior thigh, groin and described as achy. Pain scale is 4 on a ten point pain scale. REHAB PROBLEM LIST: Increased Pain Decreased ROM Decreased Strength Decreased Endurance Decreased Balance Decreased Function Decreased ADL's Decreased Mobility Decreased Gait PREVIOUS MEDICAL HISTORY: See EMR OCCUPATION: Retired OBJECTIVE: Posture: He demonstrated severe forward head, increased neck flexion, severely B rounded shoulders, moderate thoracic kyphosis, straight lumbar spine (severely reduced lordosis) ROM: B LE's: B hip, B knee, B ankle all motions WFL's. Trunk AROM: flexion: moderate restriction with muscular end feel. extension: severe restriction with painful end feel. L sidegliding: severe restriction with painful end feel. R sidegliding: moderate restriction with muscular end feel. Strength: B hip flexion, extension, abduction, B knee flexion and extension, and B ankle DF and PF: 4/5 with no pain during MMT's. B hip adduction: 5/5 with no pain. Palpation: TTP: groin, anterior thigh to mid thigh and occasionally the pain radiates into his L knee, B PSIS Special Tests: Repeated extension in standing: produced pain during the motion and better following the test with increased trunk AROM in all directions. Mobility: Modified Independent Gait: He demonstrated forward "stooped" posture, decreased B step lengths, decreased velocity, increased lateral trunk movements, decreased B UE movement, increased base of support, and decreased pelvic rotation. ASSESSMENT: Ousmane will benefit from skilled physical therapy to address the listed impairments to improve function and QOL. Based on his examination, his provisional classification is derangement that is responding well to extension based ther ex that improved his trunk AROM in all directions. Furthermore, he demonstrated significant reduction of strength, endurance, and altered gait mechanics. Short Term Goals 8 weeks: Pt will demonstrate significant improvements in core and B LE from baseline to 4+/5 or greater to improve function and QOL. 8 weeks: Pt will demonstrate abolished morning B thigh and hip pain along with abolished pain with walking and standing to improve function and QOL. 8 weeks; Pt will be independent with his home exercise program. Patient's Goals decrease pain, increase strength, and endurance. PLAN: Patient to be seen for Manual Therapy/STM/MET Strengthening/condition Range of Motion Spinal Stabilization Work Hardening/Cond Stretching Neuromuscular Re-ed Closed Chain Program Posture/Body mechanics Gait Trg/Balance Trg Home Exercise Program Therapeutic Activities 2x/Week for 2 Months If you have any questions, comments, or concerns about this report or plan, please contact me at . Thank you, Jordin Bowman, PT, DPT MTDD
--- NOTE | 2018-05-08 11:38 | PT PLAN OF CARE ---
Physician: LATONIA Gurrola Patient is being seen: 2x/week Therapist: Jordin Bowman, PT, DPT Medical Diagnosis: weakness, strengthening Treatment Diagnosis: same, LBP with radiating pain Date of Onset: 12/30/17 Date of Initial Evaluation: 04/01/18 Date patient was last seen: 05/08/18 Number of treatments: 10 Number of cancellations/No shows: 2 INTERVENTIONS: Manual Therapy/STM/MET Strengthening/condition Range of Motion Spinal Stabilization Work Hardening/Cond Stretching Neuromuscular Re-ed Closed Chain Program Posture/Body mechanics Gait Trg/Balance Trg Home Exercise Program Therapeutic Activities GOALS: 8 weeks: Pt will demonstrate significant improvements in core and B LE from baseline to 4+/5 or greater to improve function and QOL. 8 weeks: Pt will demonstrate abolished morning B thigh and hip pain along with abolished pain with walking and standing to improve function and QOL. 8 weeks; Pt will be independent with his home exercise program. PATIENT'S GOAL: decrease pain, increase strength, and endurance. Status of Patient's Goals: Progressing well Patient Compliance: Good Prognosis: Good Reasons for continuing therapy: This is a progress note for Ousmane Norton. Ousmane reports that he is doing well. He reports that he has been doing his stretching at least 4 times per day. He reports that he continues to get the hip and quad stiffness in the am and then it disappears with movement and following his stretches for the rest of the day. He reports that his daughters have noticed that he is doing more things around the house and is just not sitting around anymore.He is progressing well. He continues to demonstrate a dysfunction type presentation that is progressing with stretching on his own every 3 hours and will continue to progress as he stays consistent with his two specific stretches. Furthermore, he demonstrates abolished B hip pain and abolished B quad pain that has improved ambulation and gait mechanics. Furthermore, he demonstrates a significant improvement in his B LE strength and endurance. We will continue to improve function, strength, gait mechanics, endurance, and return to prior level of function. Posture: He demonstrated severe forward head, increased neck flexion, severely B rounded shoulders, moderate thoracic kyphosis, straight lumbar spine (severely reduced lordosis) ROM: B LE's: B hip, B knee, B ankle all motions WFL's. Trunk AROM: flexion: moderate restriction with muscular end feel. extension: severe restriction with painful end feel. L sidegliding: severe restriction with painful end feel. R sidegliding: moderate restriction with muscular end feel. Strength: B hip flexion, extension, abduction, B knee flexion and extension, and B ankle DF and PF: 4+/5 with no pain during MMT's. B hip adduction: 5/5 with no pain. Palpation: TTP: No longer TTP Special Tests: Repeated extension in standing: produced pain during the motion and better following the test with increased trunk AROM in all directions. Mobility: Modified Independent MTDD
--- NOTE | 2018-06-18 14:09 | PT PLAN OF CARE ---
Physician: LATONIA Gurrola Patient is being seen: [romeo [email or web address]] Therapist: [[email or web address] [email or web address]] Medical Diagnosis: weakness, strengthening Treatment Diagnosis: same, LBP with radiating pain Date of Onset: 12/30/17 Date of Initial Evaluation: 04/01/18 Date patient was last seen: 06/17/18 Number of treatments: 20 Number of cancellations/No shows: [*] INTERVENTIONS: Manual Therapy/STM/MET Strengthening/condition Range of Motion Spinal Stabilization Work Hardening/Cond Stretching Neuromuscular Re-ed Closed Chain Program Posture/Body mechanics Gait Trg/Balance Trg Home Exercise Program Therapeutic Activities GOALS: 8 weeks: Pt will demonstrate significant improvements in core and B LE from baseline to 4+/5 or greater to improve function and QOL. 8 weeks: Pt will demonstrate abolished morning B thigh and hip pain along with abolished pain with walking and standing to improve function and QOL. 8 weeks; Pt will be independent with his home exercise program. PATIENT'S GOAL: decrease pain, increase strength, and endurance. Status of Patient's Goals: Progressing well Patient Compliance: Good Prognosis: Good Reasons for continuing therapy: This is a progress note for Ousmane Norton. Ousmane reports that he is doing well. He reports that he has been doing his stretching at least 4 times per day. He reports that he continues to get the L hip and B quad stiffness in the am and then it disappears with movement and following his stretches for the rest of the day. He reports that every once in a while he has pain when he goes from standing to sitting. He continues to demonstrate a dysfunction type presentation that is progressing with stretching on his own every 3 hours and will continue to progress as he stays consistent with his two specific stretches. Furthermore, he demonstrates a significant improvement in his B LE strength and endurance; however, he continues to be restricted with his B hip flexors and B quad tightness. We will continue to improve function, strength, gait mechanics, endurance, and return to prior level of function. Posture: He demonstrated severe forward head, increased neck flexion, severely B rounded shoulders, moderate thoracic kyphosis, straight lumbar spine (severely reduced lordosis) ROM: B LE's: B hip, B knee, B ankle all motions WFL's. Trunk AROM: flexion: moderate restriction with muscular end feel. extension: severe restriction with painful end feel. L sidegliding: severe restriction with painful end feel. R sidegliding: moderate restriction with muscular end feel. Strength: B hip flexion, extension, abduction, B knee flexion and extension, and B ankle DF and PF: 4+/5 with no pain during MMT's. B hip adduction: 5/5 with no pain. Palpation: TTP: No longer TTP Special Tests: Repeated extension in standing: produced pain during the motion and better following the test with increased trunk AROM in all directions. Mobility: Modified Independent If you have any questions, please contact me at [phone]. Thank you, Jordin Bowman, PT, DPT MTDD
[~2018-06-24 08:15] MED LIST changes: +AMOX-559 PO
== END 2018-06-30 ==
LOC: PT 08:15
PROVIDERS: ATTEND Nurse Practitioner Family
DX: M54.5 Low back pain (principal); R53.1 Weakness; M79.651 Pain in right thigh; M79.652 Pain in left thigh; M25.551 Pain in right hip; M25.552 Pain in left hip; W05.1XXA Fall from non-moving nonmotorized scooter, initial encounter
CPT/HCPCS: 97162

== ENCOUNTER 2018-09-04 08:15 | Outpatient (RCR) | payer MEDICARE, OTHER ==
--- NOTE | 2018-07-01 13:58 | PT PLAN OF CARE ---
Physician: LATONIA Gurrola Patient is being seen: 2x/week Therapist: Jordin Bowman, PT, DPT Medical Diagnosis: weakness, strengthening Treatment Diagnosis: same, LBP with radiating pain Date of Onset: 12/30/17 Date of Initial Evaluation: 04/01/18 Date patient was last seen: 07/01/18 Number of treatments: 24 Number of cancellations/No shows: 1 INTERVENTIONS: Manual Therapy/STM/MET Strengthening/condition Range of Motion Spinal Stabilization Work Hardening/Cond Stretching Neuromuscular Re-ed Closed Chain Program Posture/Body mechanics Gait Trg/Balance Trg Home Exercise Program Therapeutic Activities GOALS: 8 weeks: Pt will demonstrate significant improvements in core and B LE from baseline to 4+/5 or greater to improve function and QOL. 8 weeks: Pt will demonstrate abolished morning B thigh and hip pain along with abolished pain with walking and standing to improve function and QOL. 8 weeks; Pt will be independent with his home exercise program. PATIENT'S GOAL: decrease pain, increase strength, and endurance. Status of Patient's Goals: Progressing well Patient Compliance: Good Prognosis: Good Reasons for continuing therapy: This is a progress note for Ousmane Norton. Ousmane reports that he is doing well. He reports that he has been doing his stretching at least 4 times per day. He reports that he continues to get the L hip and B quad stiffness in the am and then it disappears with movement and following his stretches for the rest of the day. He reports that every once in a while he has a sharp pain when he goes from standing to sitting. He continues to demonstrate a dysfunction type presentation that is progressing with stretching on his own every 3 hours and will continue to progress as he stays consistent with his two specific stretches. Furthermore, he demonstrates a significant improvement in his B LE strength (they are starting to equalize from L LE to R LE, which is a significant improvement) and endurance; however, he continues to be restricted with his B hip flexors and B quad tightness. We will continue to improve function, strength, gait mechanics, endurance, and return to prior level of function. Posture: He demonstrated severe forward head, increased neck flexion, severely B rounded shoulders, moderate thoracic kyphosis, straight lumbar spine (severely reduced lordosis) ROM: B LE's: B hip, B knee, B ankle all motions WFL's. Trunk AROM: flexion: moderate restriction with muscular end feel. extension: severe restriction with painful end feel. L sidegliding: severe restriction with painful end feel. R sidegliding: moderate restriction with muscular end feel. Strength: B hip flexion, extension, abduction, B knee flexion and extension, and B ankle DF and PF: 4+/5 with no pain during MMT's. B hip adduction: 5/5 with no pain. Palpation: TTP: No longer TTP Special Tests: Repeated extension in standing: produced pain during the motion and better following the test with increased trunk AROM in all directions. Mobility: Modified Independent If you have any questions, please contact me at [phone]. Thank you, Jordin Bowman, PT, DPT [place]
--- NOTE | 2018-08-07 20:29 | PT PLAN OF CARE ---
Physician: LATONIA Gurrola Patient is being seen: 2x/week Therapist: Jordin Bowman, PT, DPT Medical Diagnosis: weakness, strengthening Treatment Diagnosis: same, LBP with radiating pain Date of Onset: 12/30/17 Date of Initial Evaluation: 04/01/18 Date patient was last seen: 08/07/18 Number of treatments: 34 Number of cancellations/No shows: 0 INTERVENTIONS: Manual Therapy/STM/MET Strengthening/condition Range of Motion Spinal Stabilization Work Hardening/Cond Stretching Neuromuscular Re-ed Closed Chain Program Posture/Body mechanics Gait Trg/Balance Trg Home Exercise Program Therapeutic Activities GOALS: 8 weeks: Pt will demonstrate significant improvements in core and B LE from baseline to 4+/5 or greater to improve function and QOL. 8 weeks: Pt will demonstrate abolished morning B thigh and hip pain along with abolished pain with walking and standing to improve function and QOL. 8 weeks; Pt will be independent with his home exercise program. PATIENT'S GOAL: decrease pain, increase strength, and endurance. Status of Patient's Goals: Progressing well Patient Compliance: Good Prognosis: Good Reasons for continuing therapy: This is a progress note for Ousmane Norton. Ousmane reports that he is doing well. He reports that he has been doing his stretching at least 4 times per day. He reports that he continues to get the L hip and B quad stiffness in the am and rates it to be 2/10 and then it disappears with movement and following his stretches for the rest of the day. Furthermore, he reports that most of his pain is coming from the R groin and the B quad pain has pretty much decreased. Furthermore, he demonstrates a significant improvement in his B LE strength (they are currently equalized from L LE to R LE, which is a significant improvement) and endurance; however, he continues to be restricted with his B hip flexors and B quad tightness that has slightly improved throughout his PT sessions. We will continue to improve function, strength, gait mechanics, endurance, and return to prior level of function. Furthermore, we will ensure he is doing well on his home exercise program and discharge in the next 1-3 weeks. Posture: He demonstrated severe forward head, increased neck flexion, severely B rounded shoulders, moderate thoracic kyphosis, straight lumbar spine (severely reduced lordosis) ROM: B LE's: B hip, B knee, B ankle all motions WFL's. Trunk AROM: flexion: moderate restriction with muscular end feel. extension: severe restriction with painful end feel. L sidegliding: severe restriction with painful end feel. R sidegliding: moderate restriction with muscular end feel. Strength: B hip flexion, extension, abduction, B knee flexion and extension, and B ankle DF and PF: 4+/5 with no pain during MMT's. B hip adduction: 5/5 with no pain. Palpation: TTP: No longer TTP Special Tests: Repeated extension in standing: produced pain during the motion and better following the test with increased trunk AROM in all directions. Mobility: Modified Independent If you have any questions, please contact me at [phone]. Thank you, Jordin Bowman, PT, DPT [place]
--- NOTE | 2018-09-04 11:44 | PT PLAN OF CARE ---
Physician: LATONIA Gurrola Patient is being seen: 2x/week Therapist: Jordin Bowman, PT, DPT Medical Diagnosis: weakness, strengthening Treatment Diagnosis: same, LBP with radiating pain Date of Onset: 12/30/17 Date of Initial Evaluation: 04/01/18 Date patient was last seen: 09/04/18 Number of treatments: 41 Number of cancellations/No shows: 0 INTERVENTIONS: Manual Therapy/STM/MET Strengthening/condition Range of Motion Spinal Stabilization Work Hardening/Cond Stretching Neuromuscular Re-ed Closed Chain Program Posture/Body mechanics Gait Trg/Balance Trg Home Exercise Program Therapeutic Activities GOALS: 8 weeks: Pt will demonstrate significant improvements in core and B LE from baseline to 4+/5 or greater to improve function and QOL. 8 weeks: Pt will demonstrate abolished morning B thigh and hip pain along with abolished pain with walking and standing to improve function and QOL. 8 weeks; Pt will be independent with his home exercise program. PATIENT'S GOAL: decrease pain, increase strength, and endurance. Status of Patient's Goals: MET Patient Compliance: Good Prognosis: Good Reasons for continuing therapy: This is a discharge note for Ousmane Norton. He reports that he is doing well. He reports that he feels like he can walk much farther with less breaks. He reports that he feels like he can walk up and down stairs like he could prior to the hip. He reports that he feels like the strength on both sides have significant improved. He reports that he is able to put on his socks, which he states that it has been a long time since he as been able to do that. He reports that he feels comfortable with his home exercise program.He has progressed well within PT. He has demonstrated the following improvements: increased B LE strength (returned to prior level of function), increased anterior hip flexibility which has lead to increased upright posture, improvement is gait mechanics, increased endurance, and improved functional improvement around his home. He is independent with his home exercise program. He has met all of his goals. As a result, he will be discharged from PT. Posture: He demonstrated severe forward head, increased neck flexion, severely B rounded shoulders, moderate thoracic kyphosis, straight lumbar spine (severely reduced lordosis) ROM: B LE's: B hip, B knee, B ankle all motions WFL's. Trunk AROM: flexion: moderate restriction with muscular end feel. extension: severe restriction with painful end feel. L sidegliding: severe restriction with painful end feel. R sidegliding: moderate restriction with muscular end feel. Strength: B hip flexion, extension, abduction, B knee flexion and extension, and B ankle DF and PF: 5/5 with no pain during MMT's. B hip adduction: 5/5 with no pain. Palpation: TTP: No longer TTP Special Tests: Repeated extension in standing: produced pain during the motion and better following the test with increased trunk AROM in all directions. Mobility: Modified Independent If you have any questions, please contact me at [phone]. Thank you, Jordin Bowman, PT, DPT [facility]
== END 2018-09-04 18:00 | disposition home or self-care (01) ==
LOC: PT 08:15
PROVIDERS: ATTEND Nurse Practitioner Family
DX: M54.5 Low back pain (principal); R53.1 Weakness; M79.651 Pain in right thigh; M79.652 Pain in left thigh; M25.551 Pain in right hip; M25.552 Pain in left hip; W05.1XXA Fall from non-moving nonmotorized scooter, initial encounter